=== PATIENT | male | born 1955 | race Caucasian/White ===

== ENCOUNTER 2020-04-17 10:13 | Outpatient (REF) | payer BC, SELFPAY | END 2020-04-17 10:14 | disposition home or self-care (01) | LOC: HO.LNP 10:13 | PROVIDERS: PCP Internal Medicine; Visit Provider Surgery | DX: L72.3 Sebaceous cyst (principal) | CPT/HCPCS: 11401; 88304 ==

== ENCOUNTER → 2020-04-25 08:47 | Outpatient (BNVA) | payer BC, SELFPAY | PROVIDERS: PCP Internal Medicine; Visit Provider Surgery | DX: Z76.89 Persons encountering health services in other specified circumstances (principal) ==

== ENCOUNTER → 2020-07-17 08:25 | Outpatient (BNVA) | payer BC, SELFPAY | PROVIDERS: PCP Internal Medicine; Visit Provider Internal Medicine Cardiovascular Disease ==

== ENCOUNTER 2021-01-01 14:47 | Outpatient (REF) | payer BC, SELFPAY ==
[2021-01-01 15:34] LABS: Glucose Urine UA NEG (NEG); Leukocyte Esterase Urine NEG (NEG); Nitrite Urine NEG (NEG); Urine Blood NEG (NEG); Urine Ketones NEG (NEG); Urine Protein NEG (NEG-TRACE)
[2021-01-01 15:36] LABS: Hematocrit 41.3 % (42-52); Mean Corpuscular HGB Conc 33.9 g/dl (31.0-36.0); Mean Corpuscular Hemoglobin 29.5 pg (27.0-33.0); Mean Corpuscular Volume 87.1 fL (80-98); Mean Platelet Volume 9.9 fL (9.4-12.4); Platelet Count 231 X10*3/uL (160-400); Red Blood Count 4.74 X10*6/uL (4.60-5.80); Red Cell Distribution Width 13.6 % (11.0-16.0); White Blood Count 7.5 X10*3/uL (4.8-10.8)
[2021-01-01 15:37] LABS: Appearance Urine CLEAR; Color Urine YELLOW
[2021-01-01 16:05] LABS: Alanine Aminotransferase 34 U/L (0-40); Albumin Level 4.3 g/dL (3.5-5.0); Alkaline Phosphatase 57 U/L (39-117); Anion Gap 13 (12-20); Aspartate Amino Transferase 31 U/L (5-37); Bilirubin Direct 0.2 mg/dL (0.0-0.5); Bilirubin Total 0.6 mg/dL (0.0-1.0); Blood Urea Nitrogen 13 mg/dL (9-16); Calcium 9.5 mg/dL (8.4-10.2); Carbon Dioxide 25 mmol/L (22-29); Chloride 104 mmol/L (96-108); Cholesterol 163 mg/dL; Estimated Glomerular Filt Rate > 60; Glucose Random 88 mg/dL (60-115); HDL Cholesterol 41 mg/dL; LDL Cholesterol Calculated 112 mg/dl; Potassium 4.3 mmol/L (3.3-5.1); Sodium 138 mmol/L (135-145); Total Protein 7.3 g/dL (6.5-8.0); Triglycerides 52 mg/dL
[2021-01-01 16:09] LABS: Prostate Specific Antigen Scr 1.55 ng/mL (<0.05-4.0); Thyroid Stimulating Hormone 0.55 uIU/mL (0.32-4.0)
== END 2021-01-01 14:48 | disposition home or self-care (01) ==
LOC: HO.LAB 14:47
PROVIDERS: PCP Internal Medicine; Visit Provider Internal Medicine
DX: Z12.5 Encounter for screening for malignant neoplasm of prostate (principal); L02.91 Cutaneous abscess, unspecified
CPT/HCPCS: 36415; 80048; 80061; 80076; 81003; 84153; 84443; 85027

== ENCOUNTER → 2021-01-24 08:24 | Outpatient (BNVA) | payer BC, SELFPAY | PROVIDERS: PCP Internal Medicine; Referring Provider Internal Medicine; Visit Provider Internal Medicine Cardiovascular Disease ==

== ENCOUNTER → 2021-09-05 15:05 | Outpatient (BNVA) | payer MEDICARE, SELFPAY | PROVIDERS: PCP Internal Medicine; Referring Provider Internal Medicine; Visit Provider Internal Medicine Cardiovascular Disease | DX: Z45.018 Encounter for adjustment and management of other part of cardiac pacemaker (principal) | CPT/HCPCS: 99212 ==

== ENCOUNTER → 2022-03-11 08:40 | Outpatient (BNVA) | payer MEDICARE, SELFPAY | PROVIDERS: PCP Internal Medicine; Referring Provider Internal Medicine; Visit Provider Internal Medicine Cardiovascular Disease | DX: Z45.018 Encounter for adjustment and management of other part of cardiac pacemaker (principal); R07.89 Other chest pain; R42 Dizziness and giddiness | CPT/HCPCS: 93005; 93280; 99212 ==

== ENCOUNTER → 2022-09-18 09:17 | Outpatient (BNVA) | payer MEDICARE, SELFPAY | PROVIDERS: PCP Internal Medicine; Referring Provider Internal Medicine; Visit Provider Internal Medicine Cardiovascular Disease | DX: R00.1 Bradycardia, unspecified (principal); R42 Dizziness and giddiness; Z95.0 Presence of cardiac pacemaker | CPT/HCPCS: 93280; 99212 ==

== ENCOUNTER 2023-03-25 13:32 | Outpatient (AMB) | payer MEDICARE, SELFPAY ==
[2023-03-25 13:32] VITALS: BP 138/72; PULSE 63; BMI 27.8
--- NOTE | 2023-03-25 13:32 | MHC.OFFVIS ---
Intake Vital Signs 03/25/23 13:32 Height 5 ft 10 in Weight 194 lb 0.108 oz BMI 27.8 BP 138/72 Blood Pressure Location Lt brachial Position Sitting Pulse 63 Intake Visit Reasons: 6 MON FUP Intake Note: 6 month follow-up feeling good still gets pain under left chest Controls Project Engineer Required: No Allergies No Known Allergies Allergy (Verified 09/18/22 09:33) Medication List - Last Reconciled 03/25/23 by Blake Conley MD omeprazole 20 mg PO DAILY sildenafil (Viagra) 50 mg PO DAILY PRN 30 days tamsulosin (Flomax) 0.4 mg PO DAILY trazodone 100 mg PO BEDTIME PRN 90 days HPI HPI Comments History of Present Illness Details Stephane comes for follow-up. No new cardiac symptoms. Continues to have left him from memory/thoracic cage discomfort not with exertion. Loss for few seconds. No lightheadedness, syncope since increasing fluid intake. Denies any prolonged palpitation irregular heartbeat. [facility] Medical History Cardiac pacemaker in situ Vasovagal syncope Bradycardia Surgical History History of surgery on arm History of pacemaker History of eye surgery Family History Father History of bladder cancer Substance use disorder Mother No problems noted. Social History Housing: House Alcohol intake: never Patient Tobacco Use Status: Former Tobacco user (1988) Quit Date: 1988 e-Cigarette/Vaping Use: Never Used Second Hand Smoke Exposure: No service: Yes Current occupational status: retired Cognitive needs: No Hearing needs: Yes (hearing aide) Vision needs: Yes (reading glasses) Review of Systems Const Denies chills, Denies fatigue, Denies fever(s), Denies frequent falls, Denies weakness, Denies weight gain and Denies weight loss ENT Denies dizziness Card Denies chest pain, Denies leg edema, Denies lightheadedness, Denies palpitations, Denies dyspnea, Denies dyspnea on exertion, Denies orthopnea and Denies other (loss of consciousness) Resp Denies cough, Denies dyspnea and Denies dyspnea on exertion GI Denies hematochezia and Denies change in stool character Musc Denies abnormal gait, Denies muscle weakness, Denies numbness, Denies radiating pain into limb and Denies tingling Neuro Denies abnormal gait, Denies dizziness, Denies frequent falls, Denies numbness, Denies tingling and Denies weakness Endo Denies fatigue and Denies palpitations Physical Exam Vital Signs: Last Vital Signs Pulse 63 03/25/23 13:32 BP 138/72 03/25/23 13:32 BMI result Body Mass Index 27.8 Const General: cooperative, comfortable, no acute distress, alert, awake and well groomed Nutritional Appearance: average body habitus Orientation/consciousness: patient oriented x3 Limitations: no limitations Neck Neck: Yes trachea midline, Yes supple and Yes no JVD Chest Chest palpation & inspection: normal inspection of the chest Resp Effort & Inspection: normal respiratory effort Auscultation: clear to auscultation bilaterally Cardio Jugular venous distension: no JVD Palpation: normal PMI Rate: regular rate Rhythm: regular rhythm Heart sounds: S1 normal heart sound present and S2 normal heart sound present GI Inspection: Yes normal to inspection Skin General skin exam: no rashes or lesions noted Neuro General: patient oriented x3 and no focal motor deficits Extrem General: Yes no clubbing, cyanosis or edema Psych Appearance: grossly normal Office Procedures Cardiac Device Check Cardiac Device Check Details: Dual-chamber Medtronic pacemaker in place programmed in MVP mode with rate drop response turned on. Atrial and ventricular sensing is adequate. Atrial pacing thresholds adequate and reprogrammed to enhance battery life. Ventricular pacing thresholds adequate and reprogrammed to provide adequate safety. Pacing lead impedance is stable. No arrhythmias detected. Battery life is at about 22 months [id number] Cardiac Device Check, pacemaker dual lead Procedure code (CPT) selection complete EKG Details: EKG shows normal sinus rhythm with minimal voltage criteria for LVH otherwise normal EKG. 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 Doing very well from that perspective. It request on following pacemaker through the office every 6 months. Will continue to do the same. Continue adequate fluid intake. No other cardiac workup is indicated at this point time. Will follow up in the clinic in 6 months time, sooner p.r.n.. Thank you for allowing me to partake in his care Coding Level of Care Code Est Pt Level 3 (08532) Diagnoses Cardiac pacemaker in situ Z95.0 CPT Codes Cardiac Device Check - Cardiac Device 2: [id number] Cardiac Device Check, pacemaker dual lead ([id number]) EKG - CPT: 32564-[id number], Complete ([id number])
== END 2023-03-25 13:59 | disposition home or self-care (01) ==
PROVIDERS: Visit Provider Internal Medicine Cardiovascular Disease
DX: R55 Syncope and collapse (principal); Z95.0 Presence of cardiac pacemaker
CPT/HCPCS: 93280; 99213

== ENCOUNTER → 2023-03-25 13:32 | Outpatient (BNVA) | payer MEDICARE, SELFPAY | PROVIDERS: Visit Provider Internal Medicine Cardiovascular Disease | DX: Z45.018 Encounter for adjustment and management of other part of cardiac pacemaker (principal) | CPT/HCPCS: 93005; 93280; 99212 ==

== ENCOUNTER 2023-04-15 07:41 | Outpatient (REF) | payer MEDICARE, SELFPAY ==
[2023-04-15 08:41] LABS: Hematocrit 44.3 % (42.0-52.0); Hemoglobin 14.5 g/dl (14.0-18.0); Mean Corpuscular HGB Conc 32.7 g/dl (31.0-36.0); Mean Corpuscular Hemoglobin 29.2 pg (27.0-33.0); Mean Corpuscular Volume 89.3 fL (80.0-98.0); Mean Platelet Volume 10.1 fL (9.4-12.4); Platelet Count 238 X10*3/uL (160-400); Red Blood Count 4.96 X10*6/uL (4.60-5.80); Red Cell Distribution Width 14.1 % (11.0-16.0); White Blood Count 5.9 X10*3/uL (4.8-10.8)
[2023-04-15 09:43] LABS: Alanine Aminotransferase 37 U/L (0-40); Alkaline Phosphatase 54 U/L (39-117); Anion Gap 10 (12-20); Aspartate Amino Transferase 21 U/L (5-37); Bilirubin Direct 0.1 mg/dL (0.0-0.5); Bilirubin Total 0.3 mg/dL (0.0-1.0); Blood Urea Nitrogen 12 mg/dL (9-16); Calcium 9.2 mg/dL (8.4-10.2); Carbon Dioxide 28 mmol/L (22-29); Chloride 107 mmol/L (96-108); Cholesterol 188 mg/dL (<200); Estimated Glomerular Filt Rate > 60; Glucose Random 113 mg/dL (60-115); HDL Cholesterol 37 mg/dL (>40); LDL Cholesterol Calculated 128 mg/dL (<100); Sodium 141 mmol/L (135-145); Total Protein 7.2 g/dL (6.5-8.0); Triglycerides 119 mg/dL (<150)
[2023-04-15 09:49] LABS: Prostate Specific Antigen Scr 1.65 ng/mL (<0.05-4.0)
== END 2023-04-15 07:42 | disposition home or self-care (01) ==
LOC: HO.LAB 07:41
PROVIDERS: PCP Internal Medicine; Visit Provider Internal Medicine
DX: F41.1 Generalized anxiety disorder (principal); Z20.2 Contact with and (suspected) exposure to infections with a predominantly sexual mode of transmission; Z12.5 Encounter for screening for malignant neoplasm of prostate; E78.00 Pure hypercholesterolemia, unspecified
CPT/HCPCS: 36415; 80048; 80061; 80076; 84153; 84443; 85027

== ENCOUNTER 2023-10-01 08:17 | Outpatient (AMB) | payer MEDICARE, SELFPAY ==
--- NOTE | 2023-10-01 08:24 | A.OFFVIS_ITS ---
Vital Signs 10/01/23 08:25 Height 5 ft 10 in Weight 196 lb 3.382 oz BMI 28.2 BP 136/80 Blood Pressure Location Lt brachial Position Sitting Pulse 55 Intake Visit Reasons: 6 mth f/up Intake Note: 6 month follow-up with [employer] feeling good Boiler Engineer Required: No Allergies No Known Allergies Allergy (Verified 04/03/23 06:23) HPI Comments Details: Stephane comes for follow-up. He has no new cardiac symptoms at current point time. He denies any exertional chest pain or shortness of breath. Has started riding his bike. Denies any palpitations, lightheadedness, syncope. No heart failure symptoms. [facility] Medical History Erectile dysfunction Cardiac pacemaker in situ Vasovagal syncope Bradycardia Surgical History History of surgery on arm History of pacemaker History of eye surgery Family History Father History of bladder cancer Substance use disorder Mother No problems noted. Social History Housing: House Alcohol intake: never Patient Tobacco Use Status: Former Tobacco user (1988) Quit Date: 1988 e-Cigarette/Vaping Use: Never Used Second Hand Smoke Exposure: No service: Yes Current occupational status: retired Cognitive needs: No Hearing needs: Yes (hearing aide) Vision needs: Yes (reading glasses) Review of Systems Const Denies chills, Denies fatigue, Denies fever(s), Denies frequent falls, Denies weakness, Denies weight gain and Denies weight loss ENT Denies dizziness Card Denies chest pain, Denies leg edema, Denies lightheadedness, Denies palpitations, Denies dyspnea, Denies dyspnea on exertion, Denies orthopnea and Denies other (loss of consciousness) Resp Denies cough, Denies dyspnea and Denies dyspnea on exertion GI Denies hematochezia and Denies change in stool character Musc Denies abnormal gait, Denies muscle weakness, Denies numbness, Denies radiating pain into limb and Denies tingling Neuro Denies abnormal gait, Denies dizziness, Denies frequent falls, Denies numbness, Denies tingling and Denies weakness Endo Denies fatigue and Denies palpitations Physical Exam Vital Signs: Last Vital Signs Pulse 55 10/01/23 08:25 BP 136/80 10/01/23 08:25 BMI result Body Mass Index 28.2 Const General: cooperative, comfortable, no acute distress, alert, awake and well groomed Nutritional Appearance: average body habitus Orientation/consciousness: patient oriented x3 Limitations: no limitations Neck Neck: Yes trachea midline, Yes supple and Yes no JVD Chest Chest palpation & inspection: normal inspection of the chest Resp Effort & Inspection: normal respiratory effort Auscultation: clear to auscultation bilaterally Cardio Jugular venous distension: no JVD Palpation: normal PMI Rate: regular rate Rhythm: regular rhythm Heart sounds: S1 normal heart sound present and S2 normal heart sound present GI Inspection: Yes normal to inspection Skin General skin exam: no rashes or lesions noted Neuro General: patient oriented x3 and no focal motor deficits Extrem General: Yes no clubbing, cyanosis or edema Psych Appearance: grossly normal Office Procedures Cardiac Device Check Cardiac Device Check Details: Dual-chamber Medtronic pacemaker in place. Programmed in DDD at 50 beats per minute with rate drop response. More than 250 rate drop response. Atrial ventricular pacing thresholds adequate. Atrial ventricular sensing is adequate. No significant arrhythmias detected. Pacing lead impedance is stable. 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 Advised to set up remote monitoring. Battery life is close to [place]. Will continue monitor every 6 months. Advised to call me with any new symptoms. No other interventions required. Advised to maintain adequate hydration while exercising. Will follow up in the clinic in 6 months time, sooner p.r.n.. Thank you for allowing me to partake in his care Coding Level of Care Code Est Pt Level 3 (71686) Diagnoses Cardiac pacemaker in situ Z95.0 CPT Codes Cardiac Device Check - Cardiac Device 2: [id number] Cardiac Device Check, pacemaker dual lead ([id number])
[2023-10-01 08:25] VITALS: BP 136/80; PULSE 55; BMI 28.2
== END 2023-10-01 08:42 | disposition home or self-care (01) ==
PROVIDERS: PCP Internal Medicine; Visit Provider Internal Medicine Cardiovascular Disease
DX: R55 Syncope and collapse (principal); Z95.0 Presence of cardiac pacemaker
CPT/HCPCS: 93280; 99213

== ENCOUNTER → 2023-10-01 08:17 | Outpatient (BNVA) | payer MEDICARE, SELFPAY | PROVIDERS: PCP Internal Medicine; Visit Provider Internal Medicine Cardiovascular Disease | DX: Z45.018 Encounter for adjustment and management of other part of cardiac pacemaker (principal) | CPT/HCPCS: 93280; 99212 ==

== ENCOUNTER 2024-03-15 12:23 | Outpatient (AMB) | payer MEDICARE, SELFPAY ==
--- NOTE | 2024-03-15 12:30 | A.OFFVIS_ITS ---
Vital Signs 03/15/24 12:40 Height 5 ft 10 in Weight 196 lb 3.382 oz BMI 28.2 BP 120/80 Blood Pressure Location Lt brachial Position Sitting Pulse 76 Intake Visit Reasons: 6 mth f/up pacer ck Intake Note: 6 month follow-up with ekg and MEdtronic check Knockout Machine Operator Required: No Allergies No Known Allergies Allergy (Verified 04/03/23 06:23) Medication List - Last Reconciled 03/15/24 by Blake Conley MD omeprazole 20 mg PO DAILY tadalafil (Cialis) 5 mg PO DAILY tamsulosin (Flomax) 0.4 mg PO DAILY trazodone 100 mg PO BEDTIME PRN 90 days HPI Comments Details: Stephane comes for follow-up. He said he has been struggling slightly to lose weight. He otherwise has no symptoms. Denies any exertional chest pain or shortness of breath. No lightheadedness, syncope. No prolonged palpitation i rregular heartbeat. He was found to have skin cancer behind his right ear and is scheduled to undergo surgery. [facility] Medical History Erectile dysfunction Cardiac pacemaker in situ Vasovagal syncope Bradycardia Surgical History History of surgery on arm History of pacemaker History of eye surgery Family History Father History of bladder cancer Substance use disorder Mother No problems noted. Social History Housing: House Alcohol intake: never Patient Tobacco Use Status: Former Tobacco user e-Cigarette/Vaping Use: Never Used Second Hand Smoke Exposure: No service: Yes Current occupational status: retired Cognitive needs: No Hearing needs: Yes (hearing aide) Vision needs: Yes (reading glasses) Review of Systems Const Denies chills, Denies fatigue, Denies fever(s), Denies frequent falls, Denies weakness, Denies weight gain and Denies weight loss ENT Denies dizziness Card Denies chest pain, Denies leg edema, Denies lightheadedness, Denies palpitations, Denies dyspnea, Denies dyspnea on exertion, Denies orthopnea and Denies other (loss of consciousness) Resp Denies cough, Denies dyspnea and Denies dyspnea on exertion GI Denies hematochezia and Denies change in stool character Musc Denies abnormal gait, Denies muscle weakness, Denies numbness, Denies radiating pain into limb and Denies tingling Neuro Denies abnormal gait, Denies dizziness, Denies frequent falls, Denies numbness, Denies tingling and Denies weakness Endo Denies fatigue and Denies palpitations Physical Exam Vital Signs: Last Vital Signs Pulse 76 03/15/24 12:40 BP 120/80 03/15/24 12:40 BMI result Body Mass Index 28.2 Const General: cooperative, comfortable, no acute distress, alert, awake and well groomed Nutritional Appearance: average body habitus Orientation/consciousness: patient oriented x3 Limitations: no limitations Neck Neck: Yes trachea midline, Yes supple and Yes no JVD Chest Chest palpation & inspection: normal inspection of the chest Resp Effort & Inspection: normal respiratory effort Auscultation: clear to auscultation bilaterally Cardio Jugular venous distension: no JVD Palpation: normal PMI Rate: regular rate Rhythm: regular rhythm Heart sounds: S1 normal heart sound present and S2 normal heart sound present GI Inspection: Yes normal to inspection Skin General skin exam: no rashes or lesions noted Neuro General: patient oriented x3 and no focal motor deficits Extrem General: Yes no clubbing, cyanosis or edema Psych Appearance: grossly normal Office Procedures Cardiac Device Check Cardiac Device Check Details: Dual-chamber Medtronic pacemaker in place with rate drop response. Pacemaker function is adequate. Closer to [place]. 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 No syncopal episodes since then. Pacemaker is working well. Closer to [place]. Will follow up in the clinic in 2 months time for pacer check (2) Preoperative cardiovascular examination: Code(s): Z01.810 - Encounter for preprocedural cardiovascular examination Plan: Preoperative cardiovascular risk stratification prior to skin cancer surgery. Low risk surgery. Overall from cardiac perspective no new symptoms. EKGs benign. He is optimized to undergo surgery with low risk for perioperative cardiovascular morbidity mortality. Will follow up in the clinic in 2 months for pacer check. Thank you for allowing me to partake in his care Coding Level of Care Code Est Pt Level 4 (49230) Complex EM visit Add On G2211 Diagnoses Cardiac pacemaker in situ Z95.0 Preoperative cardiovascular examination Z01.810 CPT Codes Cardiac Device Check - Cardiac Device 2: [id number] Cardiac Device Check, pacemaker dual lead ([id number]) EKG - CPT: 68394-[id number], Complete ([id number])
[2024-03-15 12:40] VITALS: BP 120/80; PULSE 76; BMI 28.2
== END 2024-03-15 13:05 | disposition home or self-care (01) ==
PROVIDERS: PCP Internal Medicine; Visit Provider Internal Medicine Cardiovascular Disease
DX: I42.2 Other hypertrophic cardiomyopathy (principal); Z45.018 Encounter for adjustment and management of other part of cardiac pacemaker; Z01.810 Encounter for preprocedural cardiovascular examination
CPT/HCPCS: 93010; 93280; 99214; G2211

== ENCOUNTER → 2024-03-15 12:23 | Outpatient (BNVA) | payer MEDICARE, SELFPAY | PROVIDERS: PCP Internal Medicine; Visit Provider Internal Medicine Cardiovascular Disease | DX: Z01.810 Encounter for preprocedural cardiovascular examination (principal); Z95.0 Presence of cardiac pacemaker | CPT/HCPCS: 93005; 93280; 99212 ==

== ENCOUNTER 2024-04-14 08:08 | Outpatient (AMB) | payer MEDICARE, SELFPAY ==
--- NOTE | 2024-04-14 08:25 | A.OFFVIS_ITS ---
Intake Vital Signs 04/14/24 08:27 Height 5 ft 10 in Weight 196 lb 8 oz BMI 28.2 BP 110/74 Blood Pressure Location Lt brachial Position Sitting Pulse 54 Pulse Source Pulse Oximeter Pulse Oximetry (%) 94 Oxygen Delivery Method Room Air Intake Visit Reasons: LEANDRA G0439 Intake Note: Patient is here for an Annual Wellness Visit. Ancillary Services Manager Required: No Farm Facility Manager: Farm Facility Manager offered & declined Accompanied by: Self / Same As Patient Allergies No Known Allergies Allergy (Verified 04/14/24 08:27) HPI SWV G0439 HPI Details 68-year-old male presents to the office for a subsequent wellness visit. In addition patient wishes to discuss certain matters pertaining to his chronic medical illness. He has been taking an increased dosage of trazodone to help him sleep. This also helps him with his anxiety symptoms. He has been taking 1-1/2 pills of trazodone 100 mg every day. He wishes the medication list should reflect this dosage. Patient is complaining of discomfort and pain in the right knee. Symptoms have been present for the past few months. Able to walk with no discomfort. [facility] Medical History Osteoarthritis of right knee Borderline hypercholesterolemia Basal cell carcinoma Erectile dysfunction Cardiac pacemaker in situ Vasovagal syncope Bradycardia Surgical History H/O colonoscopy (~05/18/19) History of surgery on arm History of pacemaker History of eye surgery Family History Father History of bladder cancer Substance use disorder Mother No problems noted. Social History Housing: House Alcohol intake: never Patient Tobacco Use Status: Former Tobacco user e-Cigarette/Vaping Use: Never Used Second Hand Smoke Exposure: No service: Yes Current occupational status: retired Cognitive needs: No Hearing needs: Yes (hearing aide) Vision needs: Yes (reading glasses) Questionnaire Medicare Wellness Checkup [age] 65-70 What gender do you identify with?: male During the past 4 weeks, how much have you been bothered by emotional problems such as feeling anxious, depressed, irritable, sad or downhearted, and blue?: not at all During the past 4 weeks, has your physical & emotional health limited your social activities with family, friends, neighbors, or groups?: not at all During the past 4 weeks, how much bodily pain have you generally had?: mild pain During the past 4 weeks, was someone available to help you if you needed & wanted help?: no, not at all During the past 4 weeks, what was the hardest physical activity you could do for at least 2 minutes?: very heavy Can you get to places out of walking distance without help? (For eg., can you travel alone on buses, taxis or drive your car?): Yes Can you go shopping for groceries or clothes without someone's help?: Yes Can you prepare your own meals?: Yes Can you do your housework without help?: Yes Because of any health problems, do you need the help of another person with your personal care needs such as eating, bathing, dressing or getting around the house?: No Can you handle your own money without help?: Yes During the past 4 weeks, how would you rate your health in general?: very good During the past 4 weeks how have things been going for you?: very well; could hardly better Are you having difficulties driving your car?: no Do you always fasten your seat belt when you are in a car?: yes, usually During past 4 weeks, have you been bothered by the following: never: Falling or dizzy when standing up, Sexual problems?, Trouble eating well?, Teeth or denture problems?, Problems using the telephone? and Tiredness or fatigue? Have you fallen 2 or more times in the past year?: No Are you afraid of falling?: No Are you a smoker?: no During the past 4 weeks, how many drinks of wine, beer, or other alcoholic beverages did you have?: no alcohol at all Do you exercise for about 20 minutes 3 or more times a week?: yes, all the time Have you been given information to help with the following?: yes: Hazards in your house that might hurt you? and yes: Keeping track of your medications? How often do you have trouble taking medicines the way you have been told to take them?: I always take medicine as prescribed How confident are you that you can control & manage most of your health problems?: very confident What is your race?: White Mini Mental State Exam (MMSE) Orientation What is the (year) (season) (date) (day) (month)?: year, season, date and day Where are we (state) (county) (town or city) (hospital) (floor)?: state, county and town or city Score Score: 7 Activity of Daily Living Bathing - sponge bath, tub bath or shower: receives no assistance (gets in/out by self, if usual bathing means Dressing - getting clothes from closets & drawers, including inner/outer garments & fasteners.: gets clothes & gets completely dressed without help Toileting - going to the 'toilet room' for urine/bowel elimination & cleaning self/arranging clothes: goes to toilet room, cleans self, arranges clothes without help Transfer: moves in & out of bed and chair without help (may use support object) Continence: controls urination/bowel movements completely by self Feeding: feeds self without help Total Score: 0 Information obtained from: patient Using telephone: independent Traveling: independent Shopping: independent Preparing meals: independent Housework: independent Taking medicine: independent Managing money: independent PHQ-9 Over the last 2 weeks, how often have you been bothered by any of the following problems? 1. Little interest or pleasure in doing things: not at all 2. Feeling down, depressed, or hopeless: not at all 3. Trouble falling or staying asleep, or sleeping too much: several days 4. Feeling tired or having little energy: not at all 5. Poor appetite or overeating: not at all 6. Feeling bad about yourself - or that you are a failure or have let yourself or your family down: not at all 7. Trouble concentrating on things, such as reading the newspaper or watching television: not at all 8. Moving or speaking so slowly that other people could have noticed. Or the opposite - being so fidgety or restless that you have been moving around a lot more than usual: not at all 9. Thoughts that you would be better off or of hurting yourself in some way: not at all Total score: 1 Depression Screening Interpretation: Positive Depression Screening Done: Yes Source: Developed by Drs. Jose Mccann, Hans Dobbs and colleagues, with an educational bridget from [employer]. Thrive Questionnaire Date Thrive assessed: 04/14/24 I am a: Patient What is your living situation today?: I have a steady place to live Within the past 12 months, did the food you bought not last and you didn't have the money to get more?: Never true Within the past 12 months, did you worry whether your food would run out before you got money to buy more?: Never true Do you have trouble paying for medicines?: No Do you have trouble getting transportation to medical appointments?: No Do you have trouble paying your heating and electricity bill?: No Do you have trouble taking care of your child, family member or friend?: No Do you have trouble with day-to-day activities such as bathing, preparing meals, shopping, managing finances, etc.?: No Are you currently unemployed and looking for a job?: No Are you interested in more education?: No Please select the resources that you would like help with: None Currently or been in a relationship where the following occur: No concerns reported THRIVE Score: 0 CHRIS-7 AMB Questionnaire CHRIS-7 Date CHRIS - 7 assessed: 04/14/24 Feeling nervous, anxious, or on edge: 0 = Not at all Not being able to stop or control worryin = Not at all Worrying too much about different things: 0 = Not at all Trouble relaxin = Not at all Being so restless that it is hard to sit still: 0 = Not at all Becoming easily annoyed or irritable: 0 = Not at all Feeling afraid as if something awful might happen: 0 = Not at all Total CHRIS-7 score (0-4 normal; 5-9 mild; 10-14 moderate; 15-21 severe): 0 Source: Developed by Drs. Jose Mccann, Hans Dobbs and colleagues, with an educational bridget from [employer]. AUDIT C Alcohol Use Questionnaire (AUDIT-C) 1. How often do you have a drink containing alcohol?: Never Total Score: 0 Physical Exam Vital Signs: Last Vital Signs Pulse 54 04/14/24 08:27 BP 110/74 04/14/24 08:27 Pulse Ox 94 04/14/24 08:27 Oxygen Delivery Method Room Air 04/14/24 08:27 BMI result Body Mass Index 28.2 Balance: Normal Romberg: Negative Tandem Walk: Able to Walk and Turn: Able to Rise from sit to stand: Able to Hearing Whisper test: Pass Rozel of care and individualized screening provided to the patient. Const General: cooperative and healthy appearing Nutritional Appearance: well nourished Orientation/consciousness: patient oriented x3 Limitations: no limitations HEENT Head: Yes normal to inspection Eyes General: appearance normal, both eyes and all related structures Neck Neck: Yes normal visual inspection Chest Chest palpation & inspection: normal palpation of entire chest wall Resp Effort & Inspection: normal respiratory effort Skin Other: Right ear: Posterior surface: Irregularities over the pinna. Biopsy showed basal cell carcinoma. Neuro General: patient oriented x3 Assessment & Plan Assessment & Plan (1) Cardiac pacemaker in situ: Comment: Dual-chamber Medtronic pacemaker, with rate drop response, January 2012 for malignant cardio inhibitory vasovagal syncope Code(s): Z95.0 - Presence of cardiac pacemaker Plan: Patient is scheduled for a battery replacement. (2) Basal cell carcinoma: Code(s): C44.91 - Basal cell carcinoma of skin, unspecified Plan: Patient is scheduled for Mohs surgery in the upcoming weeks. (3) Annual visit for general adult medical examination without abnormal findings: Code(s): Z00.00 - Encounter for general adult medical examination without abnormal findings Plan: Up-to-date on his flu vaccine. Up-to-date on colonoscopy. (4) Erectile dysfunction: Code(s): N52.9 - Male erectile dysfunction, unspecified Plan: Continue current medications. (5) Generalized anxiety disorder: Code(s): F41.1 - Generalized anxiety disorder Plan: Trazodone has been increased to 150 mg once a day. (6) Borderline hypercholesterolemia: Code(s): E78.00 - Pure hypercholesterolemia, unspecified Plan: Statin has been added to the regimen. (7) Osteoarthritis of right knee: Code(s): M17.11 - Unilateral primary osteoarthritis, right knee Plan: X-ray images have been ordered. Current symptoms are being controlled well with Tylenol. Encouraged patient to continue taking the same. Orders: Orders Complete Blood Count no Diff Today E78.00 - Pure hypercholesterolemia, unspecified Basic Metabolic Panel Today E78.00 - Pure hypercholesterolemia, unspecified UA and rflx microscopic Today E78.00 - Pure hypercholesterolemia, unspecified Lipid Panel Today E78.00 - Pure hypercholesterolemia, unspecified Liver Panel Today E78.00 - Pure hypercholesterolemia, unspecified Thyroid Stimulating Hormone Today E78.00 - Pure hypercholesterolemia, unspecified XR knee RT 3V Today S83.91XA - Sprain of unspecified site of right knee, initial encounter Medications: New trazodone 150 mg PO BEDTIME 90 tabs 1RF atorvastatin 10 mg PO BEDTIME 90 tabs 1RF Discontinued trazodone Discontinued Reason: Doctor's Order 100 mg PO BEDTIME 90 days PRN 90 tabs 1RF sleep Quality Reporting (2019) Depression/Bipolar (159/160/161/177) PHQ-9: Total score: 1 Coding Level of Care Code Medicare Subsequent (G0439) Est Pt Level 4 (03175) Diagnoses Cardiac pacemaker in situ Z95.0 Basal cell carcinoma C44.91 Annual visit for general adult medical examination without abnormal findings Z00.00 Erectile dysfunction N52.9 Generalized anxiety disorder F41.1 Borderline hypercholesterolemia E78.00 Osteoarthritis of right knee M17.11
[2024-04-14 08:27] VITALS: BP 110/74; PULSE 54; O2SAT 94; BMI 28.2
== END 2024-04-14 08:59 | disposition home or self-care (01) ==
PROVIDERS: PCP Internal Medicine; Visit Provider Internal Medicine
DX: Z00.00 Encounter for general adult medical examination without abnormal findings (principal); E78.00 Pure hypercholesterolemia, unspecified; Z95.0 Presence of cardiac pacemaker; C44.91 Basal cell carcinoma of skin, unspecified; N52.9 Male erectile dysfunction, unspecified; F41.1 Generalized anxiety disorder; M17.11 Unilateral primary osteoarthritis, right knee

== ENCOUNTER → 2024-04-14 08:08 | Outpatient (BNVA) | payer MEDICARE, SELFPAY | PROVIDERS: PCP Internal Medicine; Visit Provider Internal Medicine | DX: Z95.0 Presence of cardiac pacemaker (principal); C44.91 Basal cell carcinoma of skin, unspecified; F41.1 Generalized anxiety disorder; E78.00 Pure hypercholesterolemia, unspecified | CPT/HCPCS: 99212 ==

== ENCOUNTER 2024-04-26 06:46 | Outpatient (REF) | payer MEDICARE, SELFPAY ==
--- NOTE | ~2024-04-26 | XR_ITS ---
EXAMINATION: XR KNEE, RIGHT CLINICAL INFORMATION: S83.91XA - Sprain of unspecified site of right knee, initial encounter COMPARISON: None available. TECHNIQUE: Four views of the right knee. FINDINGS: Small joint effusion. Tiny medial marginal and posterior patellar spurs. Mild narrowing of the medial compartment. Prominence of the prepatellar soft tissues. XR/XR knee RT 3V IMPRESSION: Mild degenerative changes. This study was presented today April 26, 2024 for interpretation. Stat results provided at this time as requested by referring provider. Electronically signed by: Tana Black MD 04/26/2024 08:25 AM CARMEN
[2024-04-26 07:40] LABS: Hematocrit 42.6 % (42.0-52.0); Hemoglobin 14.6 g/dl (14.0-18.0); Mean Corpuscular HGB Conc 34.3 g/dl (31.0-36.0); Mean Corpuscular Hemoglobin 29.6 pg (27.0-33.0); Mean Corpuscular Volume 86.4 fL (80.0-98.0); Mean Platelet Volume 10.1 fL (9.4-12.4); Platelet Count 231 X10*3/uL (160-400); Red Blood Count 4.93 X10*6/uL (4.60-5.80); Red Cell Distribution Width 13.6 % (11.0-16.0); White Blood Count 6.1 X10*3/uL (4.8-10.8)
[2024-04-26 07:40] LABS: Appearance Urine Clear; Color Urine Yellow; Glucose Urine UA Negative (Negative); Leukocyte Esterase Urine Negative (Negative); Nitrite Urine Negative (Negative); PH 6.5 (5.0-9.0); Specific Gravity - Urine 1.015 (1.005-1.025); Urine Blood Negative (Negative); Urine Ketones Negative (Negative); Urine Protein Negative (Neg-Trace)
[2024-04-26 08:08] LABS: Alanine Aminotransferase 38 U/L (0-40); Alkaline Phosphatase 64 U/L (39-117); Anion Gap 12 (12-20); Aspartate Amino Transferase 28 U/L (5-37); Bilirubin Direct 0.1 mg/dL (0.0-0.5); Bilirubin Total 0.4 mg/dL (0.0-1.0); Blood Urea Nitrogen 16 mg/dL (9-16); Calcium 9.2 mg/dL (8.4-10.2); Carbon Dioxide 25 mmol/L (22-29); Chloride 104 mmol/L (96-108); Cholesterol 135 mg/dL (<200); Estimated Glomerular Filt Rate > 60; Glucose Random 129 mg/dL (60-115); HDL Cholesterol 36 mg/dL (>40); LDL Cholesterol Calculated 79 mg/dL (<100); Potassium 3.9 mmol/L (3.3-5.1); Sodium 137 mmol/L (135-145); Total Protein 6.9 g/dL (6.5-8.0); Triglycerides 100 mg/dL (<150)
[2024-04-26 08:25] LABS: Thyroid Stimulating Hormone 0.91 uIU/mL (0.32-4.0)
== END 2024-04-26 06:47 | disposition home or self-care (01) ==
LOC: HO.LAB 06:46
PROVIDERS: PCP Internal Medicine; Visit Provider Internal Medicine
DX: E78.00 Pure hypercholesterolemia, unspecified (principal); S83.91XA Sprain of unspecified site of right knee, initial encounter
CPT/HCPCS: 36415; 73562; 80048; 80061; 80076; 81003; 84443; 85027

== ENCOUNTER → 2024-05-09 12:08 | Outpatient (BNVA) | payer MEDICARE, SELFPAY | PROVIDERS: PCP Internal Medicine; Visit Provider Internal Medicine Cardiovascular Disease ==

== ENCOUNTER 2024-07-26 09:26 | Outpatient (AMB) | payer MEDICARE, SELFPAY ==
--- NOTE | 2024-07-26 09:31 | MHC.OFFVIS ---
Vital Signs 07/26/24 09:33 Height 5 ft 10 in Weight 198 lb 6.656 oz BMI 28.5 BP 132/70 Blood Pressure Location Lt brachial Position Sitting Pulse 65 Pulse Source Monitor Intake Visit Reasons: 2 mth w/ medtronic ck Allergies No Known Allergies Allergy (Verified 04/14/24 08:27) Medication List - Last Reconciled 07/26/24 by Blake Conley MD atorvastatin 10 mg PO BEDTIME omeprazole 20 mg PO DAILY tamsulosin (Flomax) 0.4 mg PO DAILY trazodone 150 mg PO BEDTIME HPI Comments Details: Stephane comes for follow-up. He has been occasionally noticing pacing spikes intermittently recently. Comes for pacemaker battery evaluation. Pacemaker battery is at replacement indicator. She denies any lightheadedness, syncope. No chest pain or shortness of breath. [facility] Medical History Osteoarthritis of right knee Borderline hypercholesterolemia Basal cell carcinoma Erectile dysfunction Cardiac pacemaker in situ Vasovagal syncope Bradycardia Surgical History H/O colonoscopy (~05/18/19) History of surgery on arm History of pacemaker History of eye surgery Family History Father History of bladder cancer Substance use disorder Mother No problems noted. Social History Housing: House Alcohol intake: never Patient Tobacco Use Status: Former Tobacco user (1988) e-Cigarette/Vaping Use: Never Used Second Hand Smoke Exposure: No service: Yes Current occupational status: retired Cognitive needs: No Hearing needs: Yes (hearing aide) Vision needs: Yes (reading glasses) Review of Systems Const Denies weakness ENT Denies dizziness Card Denies chest pain, Denies chest pain with activity, Denies syncope, Denies rapid heart rate, Denies pedal edema, Denies edema, Denies leg edema, Denies lightheadedness, Denies palpitations, Denies dyspnea, Denies dyspnea on exertion and Denies orthopnea Resp Denies cough, Denies dyspnea and Denies dyspnea on exertion GI Denies hematochezia and Denies change in stool character Musc Denies abnormal gait, Denies muscle cramps, Denies muscle weakness, Denies numbness, Denies radiating pain into limb and Denies tingling Neuro Denies abnormal gait, Denies dizziness, Denies syncope, Denies numbness, Denies tingling and Denies weakness Endo Denies palpitations Physical Exam Vital Signs: Last Vital Signs Pulse 65 07/26/24 09:33 BP 132/70 07/26/24 09:33 BMI result Body Mass Index 28.5 Const General: cooperative, comfortable, no acute distress, alert, awake and well groomed Nutritional Appearance: average body habitus Orientation/consciousness: patient oriented x3 Limitations: no limitations Neck Neck: Yes trachea midline, Yes supple and Yes no JVD Chest Chest palpation & inspection: normal inspection of the chest Resp Effort & Inspection: normal respiratory effort Auscultation: clear to auscultation bilaterally Cardio Jugular venous distension: no JVD Palpation: normal PMI Rate: regular rate Rhythm: regular rhythm Heart sounds: S1 normal heart sound present and S2 normal heart sound present GI Inspection: Yes normal to inspection Skin General skin exam: no rashes or lesions noted Neuro General: patient oriented x3 and no focal motor deficits Extrem General: Yes no clubbing, cyanosis or edema Psych Appearance: grossly normal Office Procedures Cardiac Device Check Cardiac Device Check Details: Dual-chamber Medtronic pacemaker in place. He is currently programmed as backup VVI asynchronous pacing due to battery replacement indicator. No further checks were made [id number] Cardiac Device Check, pacemaker dual lead Procedure code (CPT) selection complete Assessment & Plan Assessment & Plan (1) Pacer at end of battery life: Code(s): Z45.010 - Encounter for checking and testing of cardiac pacemaker pulse generator [battery] Plan: Pacemaker at replacement indicator. He is having symptoms related to asynchronous pacing. At this point time no further intervention required except for change in pulse generator battery. This will be done in near future with the next week or so. We discussed the procedure associated with it will be scheduled as an outpatient. No change in medication at this point time. Will follow up in the clinic after pulse generator change. Coding Level of Care Code Est Pt Level 3 (07692) Complex EM visit Add On G2211 Diagnoses Pacer at end of battery life Z45.010 CPT Codes Cardiac Device Check - Cardiac Device 2: [id number] Cardiac Device Check, pacemaker dual lead ([id number])
[2024-07-26 09:33] VITALS: BP 132/70; PULSE 65; BMI 28.5
== END 2024-07-26 09:55 | disposition home or self-care (01) ==
PROVIDERS: PCP Internal Medicine; Visit Provider Internal Medicine Cardiovascular Disease
DX: Z45.010 Encounter for checking and testing of cardiac pacemaker pulse generator [battery] (principal)
CPT/HCPCS: 93280; 99213; G2211

== ENCOUNTER → 2024-07-26 09:26 | Outpatient (BNVA) | payer MEDICARE, SELFPAY | PROVIDERS: PCP Internal Medicine; Visit Provider Internal Medicine Cardiovascular Disease | DX: Z45.010 Encounter for checking and testing of cardiac pacemaker pulse generator [battery] (principal) | CPT/HCPCS: 93280; 99212 ==

== ENCOUNTER 2024-07-28 08:27 | Outpatient (AMB) | payer MEDICARE, SELFPAY ==
--- NOTE | 2024-07-28 08:48 | MHC.PC.OV ---
Vital Signs 07/28/24 08:50 Height 5 ft 10 in Weight 199 lb 6 oz BMI 28.6 BP 120/72 Blood Pressure Location Lt brachial Position Sitting Pulse 70 Pulse Source Pulse Oximeter Temp 96.9 F Temp Source Temporal Artery Scan Pulse Oximetry (%) 97 Oxygen Delivery Method Room Air Intake Visit Reasons: 3mth f/u Intake Note: Patient is here to follow up on Hypercholesterolemia. Complaint of headaches Social Media Marketer Required: No Notch Machine Operator: Not Required per policy Accompanied by: Self / Same As Patient Allergies No Known Allergies Allergy (Verified 07/28/24 09:24) Medication List - Last Reconciled 07/28/24 by Massimo Hernández MD atorvastatin 10 mg PO BEDTIME omeprazole 20 mg PO DAILY tamsulosin (Flomax) 0.4 mg PO DAILY trazodone 150 mg PO BEDTIME Tobacco use date assessed: 07/28/24 Fall risk assessment: No Falls in past year Last assessed Fall Risk: 07/28/24 Dental Screening Dental Screen Date: 07/28/24 Did you have a dental visit in the last 12 months?: Yes Did you have a dental problem in the last 6 months where you did not have access to dental care?: No Was dental information given to patient?: Patient has dentist [facility] Medical History Osteoarthritis of right knee Borderline hypercholesterolemia Basal cell carcinoma Erectile dysfunction Cardiac pacemaker in situ Vasovagal syncope Bradycardia Surgical History H/O colonoscopy (~05/18/19) History of surgery on arm History of pacemaker History of eye surgery Family History Father History of bladder cancer Substance use disorder Mother No problems noted. Social History Housing: House Alcohol intake: never Patient Tobacco Use Status: Former Tobacco user (1988) e-Cigarette/Vaping Use: Never Used Second Hand Smoke Exposure: Yes service: Yes Current occupational status: retired Cognitive needs: No Hearing needs: Yes (hearing aide) Vision needs: Yes (reading glasses) Questionnaire PHQ-9 Over the last 2 weeks, how often have you been bothered by any of the following problems? 1. Little interest or pleasure in doing things: not at all 2. Feeling down, depressed, or hopeless: not at all 3. Trouble falling or staying asleep, or sleeping too much: not at all 4. Feeling tired or having little energy: not at all 5. Poor appetite or overeating: not at all 6. Feeling bad about yourself - or that you are a failure or have let yourself or your family down: not at all 7. Trouble concentrating on things, such as reading the newspaper or watching television: not at all 8. Moving or speaking so slowly that other people could have noticed. Or the opposite - being so fidgety or restless that you have been moving around a lot more than usual: not at all 9. Thoughts that you would be better off or of hurting yourself in some way: not at all Total score: 0 Depression Screening Interpretation: Negative Depression Screening Done: Yes Source: Developed by Drs. Jose Mccann, Lesa Morel, Hans Olivas and colleagues, with an educational bridget from [employer]. Thrive Questionnaire Date Thrive assessed: 07/28/24 I am a: Patient What is your living situation today?: I have a steady place to live Within the past 12 months, did the food you bought not last and you didn't have the money to get more?: Never true Within the past 12 months, did you worry whether your food would run out before you got money to buy more?: Never true Do you have trouble paying for medicines?: No Do you have trouble getting transportation to medical appointments?: No Do you have trouble paying your heating and electricity bill?: No Do you have trouble taking care of your child, family member or friend?: No Do you have trouble with day-to-day activities such as bathing, preparing meals, shopping, managing finances, etc.?: No Are you currently unemployed and looking for a job?: No Are you interested in more education?: No Please select the resources that you would like help with: None Currently or been in a relationship where the following occur: No concerns reported THRIVE Score: 0 AUDIT C Alcohol Use Questionnaire (AUDIT-C) 1. How often do you have a drink containing alcohol?: Never Total Score: 0 CHRIS-7 AMB Questionnaire CHRIS-7 Date CHRIS - 7 assessed: 07/28/24 Feeling nervous, anxious, or on edge: 0 = Not at all Not being able to stop or control worryin = Not at all Worrying too much about different things: 0 = Not at all Trouble relaxin = Not at all Being so restless that it is hard to sit still: 0 = Not at all Becoming easily annoyed or irritable: 0 = Not at all Feeling afraid as if something awful might happen: 0 = Not at all Total CHRIS-7 score (0-4 normal; 5-9 mild; 10-14 moderate; 15-21 severe): 0 Source: Developed by Drs. Jose Mccann, Lesa Morel, Hans Olivas and colleagues, with an educational bridget from [employer]. Physical exam (Primary Care) Vital Signs: Last Vital Signs Temp 96.9 F 07/28/24 08:50 Pulse 70 07/28/24 08:50 BP 120/72 07/28/24 08:50 Pulse Ox 97 07/28/24 08:50 Oxygen Delivery Method Room Air 07/28/24 08:50 BMI result Body Mass Index 28.6 Tobacco/Smoking Status: Tobacco use Status Tobacco use date assessed 07/28/24 07/28/24 08:54 Patient Tobacco Use Status Former Tobacco user (1988) 07/28/24 08:48 e-Cigarette/Vaping Use Never Used 07/28/24 08:48 PHQ-9: PHQ-9 Score PHQ-9: Total score 0 07/28/24 08:54 Depression Screening Interpretation: Negative Thrive Assessment: Date of Thrive Assessment Date Thrive assessed 07/28/24 07/28/24 08:54 Currently or been in a relationship where the following occur: No concerns reported Coding Level of Care Code Est Pt Level 4 (86829) Complex EM visit Add On G2211 Diagnoses Basal cell carcinoma C44.91 Borderline hypercholesterolemia E78.00 Cardiac pacemaker in situ Z95.0 Generalized anxiety disorder F41.1 Hematochezia K92.1 Headache R51.9 Assessment & Plan Assessment & Plan (1) Basal cell carcinoma: Code(s): C44.91 - Basal cell carcinoma of skin, unspecified Category: Medical Plan: Condition has resolved. (2) Borderline hypercholesterolemia: Code(s): E78.00 - Pure hypercholesterolemia, unspecified Category: Medical Plan: BW shows LDL in range. Continue medications at same dosage. (3) Cardiac pacemaker in situ: Comment: Dual-chamber Medtronic pacemaker, with rate drop response, January 2012 for malignant cardio inhibitory vasovagal syncope Code(s): Z95.0 - Presence of cardiac pacemaker Category: Medical Plan: Scheduled for battery replacement next week. (4) Generalized anxiety disorder: Code(s): F41.1 - Generalized anxiety disorder Category: Medical Plan: Condition is stable (5) Hematochezia: Code(s): K92.1 - Melena Plan: One episode. Patient had a colonoscopy few years ago. If sx recur, will refer to GI (6) Headache: Code(s): R51.9 - Headache, unspecified Plan: Most likely vascular in nature. If sx persist to follow up here. Plan History of Present Illness The patient is a 69-year-old male presenting with headaches and photophobia. The headaches are recent and worsening, occurring almost daily, primarily at the back of the head and around the eyes. He finds relief with Tylenol. Photophobia is a chronic issue, with increased sensitivity to light hindering night driving due to bright lights. He has a history of cataract surgery and is experiencing floaters, prompting a recommended ophthalmic reevaluation. The patient also reported an isolated incident of bright red rectal bleeding, likely related to hemorrhoids or a previous fissure. Additionally, he is seeking advice on weight management, facing challenges with reducing carbohydrates and sugars. Social History - Functional Status: Engages in daily activities, including driving, though finding night driving difficult. - Vision: Post-cataract surgery with current involvement of floaters. - Weight: Expresses difficulty with weight loss, currently around 200 lbs, struggling to cut carbohydrates and sugars despite awareness. - Nutritional Intake: Regular consumption of wheat bread, occasionally consumes high-sugar beverages like regular Coca-Cola. Review of Systems - Neurological: Reports headaches at the back of the head and around the eyes, increasing in frequency. - Ophthalmologic: Reports photophobia that's long-standing, floaters, and difficulty with bright lights while driving. - Gastrointestinal: Reports an isolated incident of bright red bleeding per rectum. - General: Denies nausea or vomiting. Physical Exam General: Appearance normal, both eyes and all related structures Nutritional Appearance: Well nourished, but patient is concerned about weight and is having trouble losing weight Orientation/consciousness: Patient oriented x3 Limitations: No limitations, but patient reports light sensitivity and difficulty with night driving Head: Normal to inspection, but patient reports frequent headaches, particularly at the back of the head and near the eyes Neck: Normal visual inspection Chest: Normal palpation of entire chest wall Respiratory: Normal respiratory effort Neurology: Patient oriented x3, but reports frequent headaches and light sensitivity Results - Labs: Blood work completed in April, results were normal. Plan The patient's recent headaches with photophobia require further ophthalmic evaluation due to potential visual disturbances contributing to symptoms. An eye exam is recommended due to recurrent floaters. An isolated incident of rectal bleeding is monitored, while symptomatic relief through hemorrhoid management is initiated. Dietary advice for weight management is provided, prioritizing reduced carbohydrate and sugar intake. The patient's scheduled pacemaker battery replacement underscores the need for cardiovascular follow-up. Continued remission is noted after basal cell carcinoma excision. Patient was informed and verbally consented to the use of an ambient scribe for clinic note documentation during this visit. Discussion Notes During this consultation, I emphasized the significance of addressing the visual component of the headaches by rescheduling an eye exam, acknowledging the role of photophobia in exacerbating his symptoms. Discussion regarding solitary rectal bleeding events suggests a conservative approach unless recurrence or pain emerges, whereupon further investigative action will be taken. Weight management advice recommends dietary modulation to counteract rise in weight metrics while confirming normal status post-cataract intervention. The patient was counselled on maintaining vigilance on symptoms potentially heralding reemergence of bleeding episodes. The patient remains informed of expectations surrounding the pacemaker battery replacement procedure scheduled subsequently, with an elucidation on related health maintenance measures. Patient Instructions - Schedule an eye exam to evaluate for floaters and address headaches. - Monitor for further rectal bleeding; report if symptoms recur. - Reduce carbohydrate and sugar intake to aid in weight management. - Continue prescribed treatment for headaches and seek further evaluation if no improvement. - Prepare for upcoming pacemaker battery replacement as scheduled. - Stay alert for changes or new symptoms and seek medical advice promptly.
[2024-07-28 08:50] VITALS: BP 120/72; PULSE 70; TEMP 36.1; O2SAT 97; BMI 28.6
== END 2024-07-28 09:16 | disposition home or self-care (01) ==
PROVIDERS: PCP Internal Medicine; Visit Provider Internal Medicine
DX: C44.91 Basal cell carcinoma of skin, unspecified (principal); E78.00 Pure hypercholesterolemia, unspecified; Z95.0 Presence of cardiac pacemaker; F41.1 Generalized anxiety disorder; K92.1 Melena; R51.9 Headache, unspecified

== ENCOUNTER → 2024-07-28 08:27 | Outpatient (BNVA) | payer MEDICARE, SELFPAY | PROVIDERS: PCP Internal Medicine; Visit Provider Internal Medicine | DX: C44.91 Basal cell carcinoma of skin, unspecified (principal); E78.00 Pure hypercholesterolemia, unspecified; F41.1 Generalized anxiety disorder; Z95.0 Presence of cardiac pacemaker | CPT/HCPCS: 99212 ==

== ENCOUNTER 2024-08-16 07:22 | Outpatient (REF) | payer MEDICARE, SELFPAY ==
[2024-08-16 07:44] LABS: MANUAL DIFF FLAG NO
[2024-08-16 08:07] LABS: Basophils Percent Auto 0.4 % (0-2); Eosinophils Absolute Auto 0.5 X10*3/uL (0.0-0.4); Eosinophils Percent Auto 6.8 % (0-4); Hematocrit 43.3 % (42.0-52.0); Hemoglobin 14.7 g/dl (14.0-18.0); Imm Gran Abs Auto 0.01 X10*3/uL (0.00-0.03); Imm Gran Pct Auto 0.1 % (0.0-0.4); Lymphocytes Absolute Auto 2.4 X10*3/uL (1.2-4.9); Lymphocytes Percent Auto 34.4 % (20-40); Mean Corpuscular HGB Conc 33.9 g/dl (31.0-36.0); Mean Corpuscular Hemoglobin 29.2 pg (27.0-33.0); Mean Corpuscular Volume 85.9 fL (80.0-98.0); Mean Platelet Volume 10.1 fL (9.4-12.4); Monocytes Absolute Auto 0.6 X10*3/uL (0.1-1.2); Monocytes Percent Auto 8.4 % (2-11); Neutrophils Absolute Auto 3.4 x10*3/uL (2.0-8.3); Neutrophils Percent Auto 49.9 % (45-73); Platelet Count 240 X10*3/uL (160-400); Red Blood Count 5.04 X10*6/uL (4.60-5.80); Red Cell Distribution Width 13.6 % (11.0-16.0); White Blood Count 6.9 X10*3/uL (4.8-10.8)
[2024-08-16 08:38] LABS: Anion Gap 11 (12-20); Blood Urea Nitrogen 13 mg/dL (9-16); Calcium 9.1 mg/dL (8.4-10.2); Carbon Dioxide 26 mmol/L (22-29); Chloride 107 mmol/L (96-108); Estimated Glomerular Filt Rate > 60; Glucose Random 114 mg/dL (60-115); Potassium 3.8 mmol/L (3.3-5.1); Sodium 140 mmol/L (135-145)
[2024-08-16 09:34] LABS: Prothrombin Time 11.6 SEC (10.9-12.4)
== END 2024-08-16 07:23 | disposition home or self-care (01) ==
LOC: HO.LAB 07:22
PROVIDERS: PCP Internal Medicine; Visit Provider Student in an Organized Health Care Education/Training Program
DX: Z01.818 Encounter for other preprocedural examination (principal); Z45.018 Encounter for adjustment and management of other part of cardiac pacemaker
CPT/HCPCS: 36415; 80048; 85025; 85610

== ENCOUNTER 2024-08-18 12:12 | Day surgery (SDC) | payer MEDICARE, SELFPAY ==
[2024-08-18] VITALS (17 sets, daily range): BP systolic 127–169; BP diastolic 78–104; PULSE 56–75; RESP 13–19; TEMP 36.6; O2SAT 93–98; BMI 28.0
--- NOTE | 2024-08-18 14:00 | PC.NURSE ---
Patient in preop. Question of rhythm on monitor. SR for a few beats to changed beat with wide QRS complex, no tachycardia noted, patient asymptomatic. EKG obtained verifying V paced rhythm. Dr. Esqueda made aware. No new orders at this time.
--- NOTE | 2024-08-18 14:01 | ECG_ITS ---
Test Reason : pacemaker battery Blood Pressure : */* mmHG Vent. Rate : 65 BPM Atrial Rate : 62 BPM P-R Int : * ms QRS Dur : 102 ms QT Int : 418 ms P-R-T Axes : 21 -12 43 degrees QTcB Int : 434 ms Ventricular-paced rhythm Abnormal ECG When compared with ECG of 08-May-2014 16:45, Electronic ventricular pacemaker has replaced Sinus rhythm Referred By: Armando Esqueda Electronically Signed By: Naun Dobbins
[2024-08-18] MEDS: ceFAZolin Sodium/Dextrose,Iso 2 GM/50 ML PIGGYBACK IV (16:30)
[2024-08-18] MEDS: Midazolam HCl 2 MG/2 ML VIAL 1 MG IVPUSH (16:45)
[2024-08-18] MEDS: fentaNYL citrate/PF 100 MCG/2 ML VIAL 25 MCG IVPUSH (16:45)
--- NOTE | 2024-08-18 17:41 | W.PM.OPN ---
Operative Note Operative Note Date of Service: 08/18/24 Narrative: Patient presented to the EP lab in a fasting, nonsedated state after written informed consent was obtained. A timeout was called prior to beginning of the case. 2g IV Ancef was administered prior to skin incision. Patient was prepped and draped in the usual sterile manner. A 1 inch incision was made superior to the existing generator. Electrocautery and blunt dissection was used to expose the generator capsule. The existng generator was removed from the pocket. A new Medtronic pacemaker generator was brought into the field. The leads were detached from the existing generator and inserted into the respective ports of the new pacemaker generator. Pacing parameters were checked to be optimal. The pocket was flushed with an antibiotic irrigant. Any bleeders were controlled with electrocautery. A TYRX antibiotic envelope was placed inside the pocket. The pacemaker leads were wrapped underneath the generator and the generator was placed within the pocket. The pocket was closed in 3 layers: 2-0 Vicryl running followed by 4-0 V-Loc. Exofin was applied over the incision site. A guaze and Tegaderm dressing were applied over the site. Patient was then transported to recovery in a stable condition. Summary: 1. Generator replacement of dual chamber Medtronic pacemaker (CPT 42461) Recommendations: 1. Keep incision site dry for 7 days. 2. Follow up in EP clinic within 7-14 days for incision site check.
== END 2024-08-18 18:53 | disposition home or self-care (01) ==
PROVIDERS: PCP Internal Medicine; Visit Provider Student in an Organized Health Care Education/Training Program
PROC: (CPT 33228; principal; 2024-08-18 14:00)
DX: Z45.018 Encounter for adjustment and management of other part of cardiac pacemaker (principal); E78.00 Pure hypercholesterolemia, unspecified; R00.1 Bradycardia, unspecified; Z85.828 Personal history of other malignant neoplasm of skin; Z87.891 Personal history of nicotine dependence; Z79.899 Other long term (current) drug therapy; Z98.890 Other specified postprocedural states
CPT/HCPCS: 33228; 93005; C1785; C1889; J0690; J2250; J2310; J3010

== ENCOUNTER → 2024-08-18 14:01 | Outpatient (BNV) | payer MEDICARE, SELFPAY | PROVIDERS: PCP Internal Medicine; Visit Provider Internal Medicine Cardiovascular Disease | DX: R94.31 Abnormal electrocardiogram [ECG] [EKG] (principal); Z95.0 Presence of cardiac pacemaker | CPT/HCPCS: 93010 ==

== ENCOUNTER → 2024-09-05 09:58 | Outpatient (BNVA) | payer MEDICARE, SELFPAY | PROVIDERS: PCP Internal Medicine; Visit Provider Nurse Practitioner Family ==

== ENCOUNTER → 2024-09-19 23:59 | Outpatient (BNV) | payer MEDICARE, SELFPAY ==
--- NOTE | 2024-09-21 13:34 | MHC.OFFVIS ---
Intake Visit Reasons: Remote device ck-Medtronic Allergies No Known Allergies Allergy (Verified 08/18/24 13:25) PFSH Medical History (Updated 08/29/24 @ 17:15 by Nargis Templeton PA-C) Cough Osteoarthritis of right knee Borderline hypercholesterolemia Basal cell carcinoma Erectile dysfunction Cardiac pacemaker in situ Vasovagal syncope Bradycardia Surgical History (Updated 09/15/24 @ 10:20 by Lorena Garcia) History of ear surgery H/O colonoscopy (~05/18/19) History of surgery on arm History of pacemaker History of eye surgery Family History Father History of bladder cancer Substance use disorder Mother No problems noted. Social History Housing: House Alcohol intake: never Patient Tobacco Use Status: Former Tobacco user e-Cigarette/Vaping Use: Never Used Second Hand Smoke Exposure: Yes service: Yes Current occupational status: retired Cognitive needs: No Hearing needs: Yes (hearing aide) Vision needs: Yes (reading glasses) Office Procedures Cardiac Device Check Cardiac Device Check Details: Remote pacemaker report generated 09/19/2024. Pacemaker function is adequate [id number] Cardiac Device Interrogation, pacemaker Procedure code (CPT) selection complete Assessment & Plan Assessment & Plan (1) Cardiac pacemaker in situ: Comment: Dual-chamber Medtronic pacemaker, with rate drop response, January 2012 for malignant cardio inhibitory vasovagal syncope Code(s): Z95.0 - Presence of cardiac pacemaker Category: Medical Plan: See above Coding Level of Care Code Procedure Only Diagnoses Cardiac pacemaker in situ Z95.0 CPT Codes Cardiac Device Check - Cardiac Device 12: [id number] Cardiac Device Interrogation, pacemaker ([id number])
== END ==
PROVIDERS: PCP Internal Medicine; Visit Provider Internal Medicine Cardiovascular Disease
DX: R55 Syncope and collapse (principal); Z95.0 Presence of cardiac pacemaker
CPT/HCPCS: 93294

== ENCOUNTER 2024-09-23 11:14 | Outpatient (AMB) | payer MEDICARE, SELFPAY ==
[2024-09-23 11:19] VITALS: BP 130/80; PULSE 63; O2SAT 94; BMI 28.3
--- NOTE | 2024-09-23 11:19 | MHC.PC.OV ---
Vital Signs 09/23/24 11:19 Height 5 ft 10 in Weight 197 lb 4 oz BMI 28.3 BP 130/80 Blood Pressure Location Lt brachial Position Sitting Pulse 63 Pulse Source Pulse Oximeter Pulse Oximetry (%) 94 Oxygen Delivery Method Room Air Intake Visit Reasons: right ear pain Crabber Required: No Accompanied by: Self / Same As Patient Allergies No Known Allergies Allergy (Verified 09/23/24 11:45) Medication List - Last Reconciled 09/23/24 by Fred Hu MD atorvastatin 10 mg PO BEDTIME omeprazole 20 mg PO DAILY tamsulosin (Flomax) 0.4 mg PO DAILY trazodone 150 mg PO BEDTIME Tobacco use date assessed: 09/23/24 Fall risk assessment: No Falls in past year Last assessed Fall Risk: 09/23/24 Dental Screening Dental Screen Date: 09/23/24 Did you have a dental visit in the last 12 months?: No Did you have a dental problem in the last 6 months where you did not have access to dental care?: No Was dental information given to patient?: No HPI right ear pain HPI Details Patient comes in today complaining of increased pain on both sides - states that he is not sure if the pain is in his ears or in his neck He is pointing more over his posterior cervical areas and posterior auricular areas bilaterally as the areas where he feels his symptoms are and states that they have been bothering him for over a week now States that he just got over a bout of COVID (his first) - he tested positive for COVID about a month ago and relates that he was very sick for a while, with increased cough and congestion especially He was reportedly treated with a Zpak a couple of weeks ago, which he felt did not really help much States that his symptoms overall are much better now but he still feels some chest congestion and he is still coughing every now and then and he still coughs up thick whitish to slightly yellowish phlegm at times lately He denies any fever or sore throat; denies any headaches or dizziness Denies any chest pains States that his chest still feels congested but he denies any increased SOB No nausea/vomiting, no abdominal pain No change in bowel habits noted [facility] Medical History (Updated 09/23/24 @ 12:35 by Fred Hu MD) Osteoarthritis of right knee Borderline hypercholesterolemia Basal cell carcinoma Erectile dysfunction Cardiac pacemaker in situ Vasovagal syncope Bradycardia Surgical History History of ear surgery H/O colonoscopy (~05/18/19) History of surgery on arm History of pacemaker History of eye surgery Family History Father History of bladder cancer Substance use disorder Mother No problems noted. Social History Housing: House Alcohol intake: never Patient Tobacco Use Status: Former Tobacco user e-Cigarette/Vaping Use: Never Used Second Hand Smoke Exposure: Yes service: Yes Current occupational status: retired Cognitive needs: No Hearing needs: Yes (hearing aide) Vision needs: Yes (reading glasses) Questionnaire PHQ-9 Over the last 2 weeks, how often have you been bothered by any of the following problems? 1. Little interest or pleasure in doing things: not at all 2. Feeling down, depressed, or hopeless: not at all 3. Trouble falling or staying asleep, or sleeping too much: several days 4. Feeling tired or having little energy: not at all 5. Poor appetite or overeating: not at all 6. Feeling bad about yourself - or that you are a failure or have let yourself or your family down: not at all 7. Trouble concentrating on things, such as reading the newspaper or watching television: not at all 8. Moving or speaking so slowly that other people could have noticed. Or the opposite - being so fidgety or restless that you have been moving around a lot more than usual: not at all 9. Thoughts that you would be better off or of hurting yourself in some way: not at all Total score: 1 Depression Screening Interpretation: Negative Depression Screening Done: Yes 34617 - PHQ-9 Billing: Yes Source: Developed by Drs. Jose Mccann, Lesa Morel, Hans Olivas and colleagues, with an educational bridget from [facility] [employer]. Thrive Questionnaire Date Thrive assessed: 09/23/24 I am a: Patient What is your living situation today?: I have a steady place to live Within the past 12 months, did the food you bought not last and you didn't have the money to get more?: Never true Within the past 12 months, did you worry whether your food would run out before you got money to buy more?: Never true Do you have trouble paying for medicines?: No Do you have trouble getting transportation to medical appointments?: No Do you have trouble paying your heating and electricity bill?: No Do you have trouble taking care of your child, family member or friend?: No Do you have trouble with day-to-day activities such as bathing, preparing meals, shopping, managing finances, etc.?: No Are you currently unemployed and looking for a job?: No Are you interested in more education?: No Please select the resources that you would like help with: None Currently or been in a relationship where the following occur: No concerns reported THRIVE Score: 0 AUDIT C Alcohol Use Questionnaire (AUDIT-C) 1. How often do you have a drink containing alcohol?: Never 3. How often do you have six or more drinks on one occasion?: Never Total Score: 0 Score Reviewed/Action Taken: Yes CHRIS-7 AMB Questionnaire CHRIS-7 Date CHRIS - 7 assessed: 09/23/24 Feeling nervous, anxious, or on edge: 0 = Not at all Not being able to stop or control worryin = Not at all Worrying too much about different things: 0 = Not at all Trouble relaxin = Not at all Being so restless that it is hard to sit still: 0 = Not at all Becoming easily annoyed or irritable: 0 = Not at all Feeling afraid as if something awful might happen: 0 = Not at all Total CHRIS-7 score (0-4 normal; 5-9 mild; 10-14 moderate; 15-21 severe): 0 Source: Developed by Drs. Jose Mccann, Lesa Morel, Hans Olivas and colleagues, with an educational bridget from [facility]. Review of Systems Const Denies chills, Denies fatigue, Denies fever(s) and Denies headache(s) ENT Denies dysphagia, Denies dizziness, Denies ear discharge, Reports otalgia, Denies headache(s), Reports neck pain (bilaterally/on both sides), Denies odynophagia and Denies sore throat Card Denies chest pain, Denies palpitations and Denies dyspnea Resp Reports chest congestion, Reports cough (on and off - see HPI), Denies pain with cough, Denies dyspnea and Denies wheezing GI Denies abdominal pain, Denies constipation, Denies dysphagia, Denies heartburn, Denies diarrhea, Denies nausea, Denies odynophagia and Denies vomiting Denies difficulty urinating, Denies dysuria, Denies nocturia and Denies urinary frequency Musc Denies back pain and Reports neck pain (bilaterally/on both sides) Skin/Breast Denies rash Neuro Denies dizziness and Denies headache(s) Endo Denies fatigue and Denies palpitations Aller/Immun Denies wheezing Physical exam (Primary Care) Vital Signs: Last Vital Signs Pulse 63 09/23/24 11:19 BP 130/80 09/23/24 11:19 Pulse Ox 94 09/23/24 11:19 Oxygen Delivery Method Room Air 09/23/24 11:19 BMI result Body Mass Index 28.3 Tobacco/Smoking Status: Tobacco use Status Tobacco use date assessed 09/23/24 09/23/24 11:25 Patient Tobacco Use Status Former Tobacco user 09/23/24 11:25 e-Cigarette/Vaping Use Never Used 09/23/24 11:25 PHQ-9: PHQ-9 Score PHQ-9: Total score 1 09/23/24 11:25 Depression Screening Interpretation: Negative Thrive Assessment: Date of Thrive Assessment Date Thrive assessed 09/23/24 09/23/24 11:25 Currently or been in a relationship where the following occur: No concerns reported Const General: no acute distress and alert HENMT Ears: TM's normal bilaterally and EAC's normal Throat: Yes posterior oropharynx normal and Yes tonsils normal (no TP congestion) Neck Other: (+) palpable multiple bilateral posterior cervical lymph nodes - slightly tender on palpation Neck: Yes supple Thyroid: Thyroid normal Resp Auscultation: no rales, rhonchi (scattered) throughout, no wheezes and diminished lung sounds (slightly) bilateral Cardio Rate: regular rate Rhythm: regular rhythm Heart sounds: no murmurs GI Palpation (GI): Soft to palpation and nontender Auscultation: normal bowel sounds General: Yes no CVA tenderness Back/Spine/Pelvis Back: no CVA tenderness Thoracic/Lumbar Spine: No lumbar spinal tenderness Skin Rashes: no rashes Extrem General: Yes no clubbing, cyanosis or edema Coding Level of Care Code Est Pt Level 3 (48219) Diagnoses Cervical lymphadenopathy R59.0 Respiratory tract infection J98.8 Additional Codes PHQ-9 - 44187 - PHQ-9 Billing: Yes ([id number]) Assessment & Plan Assessment & Plan (1) Cervical lymphadenopathy: Code(s): R59.0 - Localized enlarged lymph nodes Category: Medical Plan: Explained to patient that the areas that he is pointing to on the sides of his neck as to where he is feeling pain are mostly due to his cervical lymph nodes and are not due to ear pain as he was initially wondering about Have explained to him that currently, his posterior cervical lymph nodes on both sides of his neck are inflamed and that is why they are tender on palpation, and that this may just be related to his recent bout with COVID He is reassured that his ears look normal on exam today and he does not have any ongoing ear infection at present Will send him to the lab to check his CBC DWIGHT for further evaluation, in case there is any other acute issues going on He will be started today empirically on Augmentin x 7 days and this will hopefully also address these symptoms (2) Respiratory tract infection: Code(s): J98.8 - Other specified respiratory disorders Category: Medical Plan: His chest/lungs sound congested on auscultation today, consistent with his stated complaints of increased chest congestion and on and off productive cough This is likely a residual of his recent bout with COVID - with his Hx of smoking, may also be a COPD exacerbation to some extent States that he was treated with a Zpak a few weeks ago and he felt that the Abx did not really help much Will go ahead and start him empirically this time on Augmentin 875 mg BID x 7 days Have advised patient to call if he still does not experience any significant improvement of his chest symptoms in a week or so when he is done with his Abx Rx and he may need to be worked up further for his respiratory/pulmonary complaints Plan Follow up with PCP as scheduled in January 2025 Orders: Orders Erythrocyte Sedimentation Rate Today R59.0 - Localized enlarged lymph nodes Complete Blood Count Auto Diff Today R59.0 - Localized enlarged lymph nodes Medications: New amoxicillin-pot clavulanate 875-125 mg 1 tab PO BID 7 days 14 tabs 0RF
== END 2024-09-23 11:49 | disposition home or self-care (01) ==
LOC: HO.HMCH 11:15
PROVIDERS: PCP Internal Medicine; Visit Provider Internal Medicine
DX: R59.0 Localized enlarged lymph nodes (principal); J98.8 Other specified respiratory disorders

== ENCOUNTER 2024-09-23 11:14 | Outpatient (REF) | payer MEDICARE, SELFPAY ==
[2024-09-23 12:09] LABS: MANUAL DIFF FLAG NO
[2024-09-23 12:22] LABS: Basophils Percent Auto 0.5 % (0-2); Eosinophils Absolute Auto 0.4 X10*3/uL (0.0-0.4); Eosinophils Percent Auto 6.7 % (0-4); Hematocrit 41.2 % (42.0-52.0); Hemoglobin 13.7 g/dl (14.0-18.0); Imm Gran Abs Auto 0.02 X10*3/uL (0.00-0.03); Imm Gran Pct Auto 0.3 % (0.0-0.4); Lymphocytes Absolute Auto 2.3 X10*3/uL (1.2-4.9); Lymphocytes Percent Auto 38.5 % (20-40); Mean Corpuscular HGB Conc 33.3 g/dl (31.0-36.0); Mean Corpuscular Hemoglobin 29.1 pg (27.0-33.0); Mean Corpuscular Volume 87.7 fL (80.0-98.0); Mean Platelet Volume 9.7 fL (9.4-12.4); Monocytes Absolute Auto 0.5 X10*3/uL (0.1-1.2); Monocytes Percent Auto 8.5 % (2-11); Neutrophils Absolute Auto 2.7 x10*3/uL (2.0-8.3); Neutrophils Percent Auto 45.5 % (45-73); Platelet Count 216 X10*3/uL (160-400); Red Cell Distribution Width 13.8 % (11.0-16.0)
[2024-09-23 13:08] LABS: Erythrocyte Sedimentation Rate 7 MM/HR (0-15)
== END 2024-09-23 11:15 | disposition home or self-care (01) ==
LOC: HO.LAB 11:14
PROVIDERS: PCP Internal Medicine; Visit Provider Internal Medicine
DX: R59.0 Localized enlarged lymph nodes (principal); J98.8 Other specified respiratory disorders
CPT/HCPCS: 36415; 85025; 85652; 96127; 99212

== ENCOUNTER 2024-09-28 08:31 | Outpatient (AMB) | payer MEDICARE, SELFPAY ==
--- NOTE | 2024-09-28 08:34 | A.OFFVIS_ITS ---
Vital Signs 09/28/24 08:36 Height 5 ft 10 in Weight 198 lb 6.656 oz BMI 28.5 BP 120/82 Blood Pressure Location Lt brachial Position Sitting Pulse 64 Intake Visit Reasons: 7 wk follow up with Pacer check Intake Note: 7 week follow-up with Medtronic check hearts doing ok Physical Education Teacher Required: No Allergies No Known Allergies Allergy (Verified 09/23/24 11:45) Medication List - Last Reconciled 09/28/24 by Blake Conley MD amoxicillin-pot clavulanate 875-125 mg 1 tab PO BID 7 days atorvastatin 10 mg PO BEDTIME omeprazole 20 mg PO DAILY tamsulosin (Flomax) 0.4 mg PO DAILY trazodone 150 mg PO BEDTIME HPI Comments Details: Stephane comes for follow-up after battery change. He has been doing well overall. No syncopal episodes. Currently dealing with left ear infection. Denies any prolonged palpitation irregular heartbeat. No lightheadedness, syncope. No exertional chest pain or shortness of breath. [facility] Medical History Osteoarthritis of right knee Borderline hypercholesterolemia Basal cell carcinoma Erectile dysfunction Cardiac pacemaker in situ Vasovagal syncope Bradycardia Surgical History History of ear surgery H/O colonoscopy (~05/18/19) History of surgery on arm History of pacemaker History of eye surgery Family History Father History of bladder cancer Substance use disorder Mother No problems noted. Social History Housing: House Alcohol intake: never Patient Tobacco Use Status: Former Tobacco user e-Cigarette/Vaping Use: Never Used Second Hand Smoke Exposure: Yes service: Yes Current occupational status: retired Cognitive needs: No Hearing needs: Yes (hearing aide) Vision needs: Yes (reading glasses) Review of Systems Const Denies chills, Denies fatigue, Denies fever(s), Denies frequent falls, Denies weakness, Denies weight gain and Denies weight loss ENT Denies dizziness Card Denies chest pain, Denies leg edema, Denies lightheadedness, Denies palpitations, Denies dyspnea, Denies dyspnea on exertion, Denies orthopnea and Denies other (loss of consciousness) Resp Denies cough, Denies dyspnea and Denies dyspnea on exertion GI Denies hematochezia and Denies change in stool character Musc Denies abnormal gait, Denies muscle weakness, Denies numbness, Denies radiating pain into limb and Denies tingling Neuro Denies abnormal gait, Denies dizziness, Denies frequent falls, Denies numbness, Denies tingling and Denies weakness Endo Denies fatigue and Denies palpitations Physical Exam Vital Signs: Last Vital Signs Pulse 64 09/28/24 08:36 BP 120/82 09/28/24 08:36 BMI result Body Mass Index 28.5 Const General: cooperative, comfortable, no acute distress, alert, awake and well groomed Nutritional Appearance: average body habitus Orientation/consciousness: patient oriented x3 Limitations: no limitations Neck Neck: Yes trachea midline, Yes supple and Yes no JVD Chest Chest palpation & inspection: normal inspection of the chest Resp Effort & Inspection: normal respiratory effort Auscultation: clear to auscultation bilaterally Cardio Jugular venous distension: no JVD Palpation: normal PMI Rate: regular rate Rhythm: regular rhythm Heart sounds: S1 normal heart sound present and S2 normal heart sound present GI Inspection: Yes normal to inspection Skin General skin exam: no rashes or lesions noted Neuro General: patient oriented x3 and no focal motor deficits Extrem General: Yes no clubbing, cyanosis or edema Psych Appearance: grossly normal Office Procedures Cardiac Device Check Cardiac Device Check Details: Dual-chamber Medtronic pacemaker in place. Programmed in MVP mode. Rate drop response was turned on. Atrial pacing thresholds excellent and reprogrammed to enhance battery life. Ventricular pacing thresholds are slightly elevated and reprogrammed to enhance battery life. Atrial ventricular sensing was excellent. Pacing lead impedance is stable. No arrhythmias were detected. 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 Rate drop response was turned on after recent battery change. Patient was doing well overall. Advised to maintain adequate hydration. No other changes were made. Pacemaker is working well overall. Will continue monitor remotely. Follow up in the clinic in 6 months time on patient's request Coding Level of Care Code Est Pt Level 3 (14376) Complex EM visit Add On G2211 Diagnoses Cardiac pacemaker in situ Z95.0 CPT Codes Cardiac Device Check - Cardiac Device 2: [id number] Cardiac Device Check, pacemaker dual lead ([id number])
[2024-09-28 08:36] VITALS: BP 120/82; PULSE 64; BMI 28.5
== END 2024-09-28 08:51 | disposition home or self-care (01) ==
LOC: HO.HCS 08:32
PROVIDERS: PCP Internal Medicine; Visit Provider Internal Medicine Cardiovascular Disease
DX: Z45.018 Encounter for adjustment and management of other part of cardiac pacemaker (principal)
CPT/HCPCS: 93280; 99212; G2211

== ENCOUNTER → 2024-09-28 08:31 | Outpatient (BNVA) | payer MEDICARE, SELFPAY | PROVIDERS: PCP Internal Medicine; Visit Provider Internal Medicine Cardiovascular Disease | DX: H60.502 Unspecified acute noninfective otitis externa, left ear (principal); Z45.018 Encounter for adjustment and management of other part of cardiac pacemaker | CPT/HCPCS: 93280; 99212 ==

== ENCOUNTER 2024-09-28 10:42 | Outpatient (AMB) | payer MEDICARE, SELFPAY ==
[2024-09-28 10:48] VITALS: BP 140/96; PULSE 100; TEMP 36.8; O2SAT 96; BMI 28.4
--- NOTE | 2024-09-28 10:48 | AM.OFFWIN_ITS ---
Intake Vital Signs 09/28/24 10:48 Height 5 ft 10 in Weight 198 lb 4 oz BMI 28.4 BP 140/96 H Blood Pressure Location Lt brachial Position Sitting Pulse 100 Pulse Source Pulse Oximeter Temp 98.3 F Temp Source Oral Pulse Oximetry (%) 96 Oxygen Delivery Method Room Air Intake Visit Reasons: EP LT ear ache Intake Note: Patient complains of left ear ache. Patient Tobacco Use Status: Former Tobacco user Pre Algebra Teacher Required: No Political Analyst: Not Required per policy Accompanied by: Self / Same As Patient Allergies No Known Allergies Allergy (Verified 09/28/24 10:48) Do you need a note to return to daycare/school/sports/work: No HPI HPI Comments History of Present Illness Details He presetns with L earache He said in July he had covid post pacemaker replacement Has some intermittent cold symptoms since Now main complaint if ear pain Ear discomfort started in L ear approx 2 weeks ago It was bilateral so he went to see PCP Fritz on 09/23 Per PCP he said the ear looked red Pt has been taking Augmentin since and still painful Few days remiaining of medicine R ear improved, L ear pain still a 09/08 Has been using tylenol without relief Pain with putting in hearing aid [facility] Medical History Osteoarthritis of right knee Borderline hypercholesterolemia Basal cell carcinoma Erectile dysfunction Cardiac pacemaker in situ Vasovagal syncope Bradycardia Surgical History History of ear surgery H/O colonoscopy (~05/18/19) History of surgery on arm History of pacemaker History of eye surgery Family History Father History of bladder cancer Substance use disorder Mother No problems noted. Social History Housing: House Alcohol intake: never Patient Tobacco Use Status: Former Tobacco user e-Cigarette/Vaping Use: Never Used Second Hand Smoke Exposure: Yes service: Yes Current occupational status: retired Cognitive needs: No Hearing needs: Yes (hearing aide) Vision needs: Yes (reading glasses) Review of Systems Const Denies chills and Denies fever(s) Eyes Denies change in vision ENT Denies dizziness, Reports ear discharge (light from L side), Reports otalgia, Denies nasal congestion and Denies sore throat Card Denies chest pain and Denies syncope Resp Denies cough Neuro Denies dizziness and Denies syncope Physical Exam Vital Signs: Last Vital Signs Temp 98.3 F 09/28/24 10:48 Pulse 100 09/28/24 10:48 BP 140/96 H 09/28/24 10:48 Pulse Ox 96 09/28/24 10:48 Oxygen Delivery Method Room Air 09/28/24 10:48 BMI result Body Mass Index 28.4 General: Non-toxic, NAD. Speaking full sentences. Skin: Warm dry throughout. No facial edema, periauricular edema or erythema or mastoid erythema/edema Eye: EOMI, PERRL HENT: Airway patent. Uvula midline. No pharyngeal erythema or edema. No PROFILE GRINDER TECHNICIAN. R canal clear. TM intact without erythema, bulging or perforation. L canal edematous with small amount of liquid yellow discharge (no pustule discharge). TM is partially visualized without perforation or overt erythema noted. No mastoid tenderness bilaterally. Respiratory: CTA bilaterally. No wheezes, rales or rhonchi Cardiac: RRR. MSK: Full ROM extremities. Neurology: Alert. No aphasia or facial droop. Gait without abnormality Psych: Good mood and affect Assessment & Plan Assessment & Plan (1) Otitis externa: Code(s): H60.90 - Unspecified otitis externa, unspecified ear Qualifiers: Otitis externa type: unspecified type Chronicity: acute Laterality: left Qualified Code(s): H60.502 - Unspecified acute noninfective otitis externa, left ear Plan: Patient seen and evaluated. No OM on exam but told to finish augmentin Avoid water in ears Avoid hearing aid until medicine completed Drops for L ear; ofloxacin for + L OE Tylenol prn pain Patient gave verbal understanding and had no additional questions or concerns at time of discharge All questions answered Medications: New ofloxacin 0.3% 5 drps otic (ears) BID 10 mL 0RF 7 days Coding Level of Care Code Est Pt Level 3 (04292) Diagnoses Acute otitis externa of left ear, unspecified type H60.502 Otitis externa type: unspecified type Chronicity: acute Laterality: left
== END 2024-09-28 11:24 | disposition home or self-care (01) ==
PROVIDERS: PCP Internal Medicine; Visit Provider Physician Assistant
DX: H60.502 Unspecified acute noninfective otitis externa, left ear (principal)

== ENCOUNTER → 2024-12-19 23:59 | Outpatient (BNV) | payer MEDICARE, SELFPAY ==
--- NOTE | 2024-12-23 08:44 | MHC.OFFVIS ---
Intake Visit Reasons: Remote device check- Medtronic Allergies No Known Allergies Allergy (Verified 09/28/24 10:48) PFS Medical History Osteoarthritis of right knee Borderline hypercholesterolemia Basal cell carcinoma Erectile dysfunction Cardiac pacemaker in situ Vasovagal syncope Bradycardia Surgical History History of ear surgery H/O colonoscopy (~05/18/19) History of surgery on arm History of pacemaker History of eye surgery Family History Father History of bladder cancer Substance use disorder Mother No problems noted. Social History Housing: House Alcohol intake: never Patient Tobacco Use Status: Former Tobacco user e-Cigarette/Vaping Use: Never Used Second Hand Smoke Exposure: Yes service: Yes Current occupational status: retired Cognitive needs: No Hearing needs: Yes (hearing aide) Vision needs: Yes (reading glasses) Office Procedures Cardiac Device Check Cardiac Device Check Details: Remote pacemaker report generated 12/19/2024. Pacemaker function is adequate [id number] Cardiac Device Interrogation, pacemaker Procedure code (CPT) selection complete Assessment & Plan Assessment & Plan (1) Cardiac pacemaker in situ: Comment: Dual-chamber Medtronic pacemaker, with rate drop response, January 2012 for malignant cardio inhibitory vasovagal syncope Code(s): Z95.0 - Presence of cardiac pacemaker Category: Medical Plan: See above Coding Level of Care Code Procedure Only Diagnoses Cardiac pacemaker in situ Z95.0 CPT Codes Cardiac Device Check - Cardiac Device 12: [id number] Cardiac Device Interrogation, pacemaker ([id number])
== END ==
PROVIDERS: PCP Internal Medicine; Visit Provider Internal Medicine Cardiovascular Disease
DX: Z45.018 Encounter for adjustment and management of other part of cardiac pacemaker (principal)
CPT/HCPCS: 93294

== ENCOUNTER 2025-01-27 11:31 | Outpatient (AMB) | payer MEDICARE, SELFPAY ==
[2025-01-27 12:23] VITALS: BP 132/80; PULSE 70; TEMP 36.6; O2SAT 97; BMI 27.8
--- NOTE | 2025-01-27 12:23 | AM.OFFWIN_ITS ---
Intake Vital Signs 01/27/25 12:23 Height 5 ft 10 in Weight 194 lb BMI 27.8 BP 132/80 Blood Pressure Location Lt brachial Position Sitting Pulse 70 Pulse Source Pulse Oximeter Temp 97.9 F Temp Source Oral Pulse Oximetry (%) 97 Intake Visit Reasons: ep cant hear in right ear Patient Tobacco Use Status: Former Tobacco user Allergies No Known Allergies Allergy (Verified 01/27/25 12:23) Do you need a note to return to daycare/school/sports/work: No HPI ep cant hear in right ear HPI Details This is a 69-year-old male patient who presents to the walk-in clinic today with about a one-week history of reduced hearing/blocked sensation on his right ear. Occasionally has a shooting pain in that ear. Denies any upper respiratory symptoms. [facility] Medical History Osteoarthritis of right knee Borderline hypercholesterolemia Basal cell carcinoma Erectile dysfunction Cardiac pacemaker in situ Vasovagal syncope Bradycardia Surgical History History of ear surgery H/O colonoscopy (~05/18/19) History of surgery on arm History of pacemaker History of eye surgery Family History Father History of bladder cancer Substance use disorder Mother No problems noted. Social History Housing: House Alcohol intake: never Patient Tobacco Use Status: Former Tobacco user e-Cigarette/Vaping Use: Never Used Second Hand Smoke Exposure: Yes service: Yes Current occupational status: retired Cognitive needs: No Hearing needs: Yes (hearing aide) Vision needs: Yes (reading glasses) Review of Systems Const All systems reviewed & are unremarkable except as noted in HPI and below Physical Exam Vital Signs: Last Vital Signs Temp 97.9 F 01/27/25 12:23 Pulse 70 01/27/25 12:23 BP 132/80 01/27/25 12:23 Pulse Ox 97 01/27/25 12:23 BMI result Body Mass Index 27.8 Const General: cooperative, healthy appearing, comfortable and no acute distress Nutritional Appearance: average body habitus Limitations: no limitations HEENT Head: Yes normal to inspection Ears: external ears normal, TM normal on the right and Abnormal EAC present otic discharge occluded by discharge on the right General nose exam: Normal external nose present Mouth: Normal oral and palatal mucosa present Resp Effort & Inspection: normal respiratory effort Skin General skin exam: no rashes or lesions noted Extrem General: Yes no clubbing, cyanosis or edema Psych Appearance: grossly normal Mental Status: mental status grossly normal Speech and movement: Normal speech and movement present Office Procedures Cerumen Removal From which ear canal was the cerumen removed: right Removal: irrigation Notes: patient tolerated procedure well, no complications and ear canal clear 71188-[id number] Irrigation/Lavage Assessment & Plan Assessment & Plan (1) Right otitis media with effusion: Code(s): H65.91 - Unspecified nonsuppurative otitis media, right ear Plan: Following irrigation of right ear, I was able to visualize TM, which was erythematous, with effusion. I am going to start him on Augmentin. We reviewed indications, use, possible side effects of medication. If he does not improve with treatment, he can return to the clinic for further evaluation. Patient verbalizes understanding and agrees to plan. Medications: New amoxicillin-pot clavulanate 875-125 mg 1 tab PO BID 14 tabs 0RF 7 days H65.91 - Unspecified nonsuppurative otitis media, right ear Coding Level of Care Code Est Pt Level 4 (61942) Diagnoses Right otitis media with effusion H65.91 CPT Codes Office Procedure - CPT: 74034-Ebe Irrigation/Lavage ([id number])
== END 2025-01-27 13:12 | disposition home or self-care (01) ==
PROVIDERS: PCP Internal Medicine; Visit Provider Nurse Practitioner Family
DX: H65.91 Unspecified nonsuppurative otitis media, right ear (principal)

== ENCOUNTER → 2025-01-27 11:31 | Outpatient (BNVA) | payer MEDICARE, SELFPAY | PROVIDERS: PCP Internal Medicine | DX: H65.91 Unspecified nonsuppurative otitis media, right ear (principal); H61.21 Impacted cerumen, right ear | CPT/HCPCS: 69209; 99212 ==

== ENCOUNTER 2025-02-02 07:56 | Outpatient (AMB) | payer MEDICARE, SELFPAY ==
--- OUTSIDE RECORDS SUMMARY | 2025-01-26 09:00 | XMS_ITS ---
Author Organization [facility] Address [address] [place] [address] Care Team Providers Care Technical Translator Name Role Phone Massimo Hernández Primary Care Provider [phone] Yasmine Pfeiffer Unavailable [phone] Selene Heredia [phone] Sullivan Encounters Encounter Location Date Provider Diagnosis [facility] [address] [place] [address] 01/26/2025 Selene Heredia Plan Of Treatment Next Appt Details Provider Name:Yasmine silver, 03/29/2025 09:30:00 AM, [address] [place], [address], Progress Notes * Stephane GOTTIDOB:1955 (69 yo M)Acc No.[id number]:01/26/2025 Progress Notes Patient: Pb Stephane NAVARRO Provider: Clarissa Heredia DPM :1955 A ge:69 Y S ex:Male Date:01/26/2025 Address:[address] [place], [place] [address] [id number] Pcp:Massimo Hernández Subjective: * Chief Complaints: * [...] DPM Date: 0 01/26/2025 Generated for Demar saleem/Yahir on: 02/02/2025 08:03 AM EDT
--- OUTSIDE RECORDS SUMMARY | 2025-01-31 10:00 | XMS_ITS ---
Author Organization [facility] Address [address] [place] [address] Care Team Providers Care Business Reporting Developer Name Role Phone Massimo Hernández Primary Care Provider Yasmine Pfeiffer Unavailable [phone] Rowena Huitron Unavailable [phone] REASON FOR VISIT Seen Sooner Encounters Encounter Location Date Provider Diagnosis [facility] [address] [place] [address] 01/31/2025 Rowena Huitron Plan Of Treatment Next Appt Details Provider Name:Yasmine silver, 03/29/2025 09:30:00 AM, [address] [place], [address], Progress Notes * Stephane GOTTIDOB:1955 (69 yo M)Acc No.[id number]:01/31/2025 Progress Notes Patient: Pb SCHMITTStephane RAE Provider: Palak Huitron DPM :1955 A ge:69 Y S ex:Male Date:01/31/2025 Address:[address] [place], [place] [address] [place] Pcp:Massimo Hernández Subjective: * Chief Complaints: * 1 . Seen Sooner. * Medical History: Objective: * Vitals: Assessment: Plan: * Treatment: * Images: * The named appointment provid er may or may not be the originator of this progress note, and it is not deemed complete until electronically signed by the appointment provider. Sign off status: Pending * Provider: Palak Huitron DPM Date: 01/31/2025 Generated for Demar saleem/Marlon/Danya on: 02/02/2025 08:04 AM EDT
--- OUTSIDE RECORDS SUMMARY | 2025-02-02 08:04 | XMS_ITS | Patient Health Record ---
Author Organization [facility] Address [address] [place] [address] Care Team Providers Care Shift Coordinator Name Role Phone BRIONNA EMERY Primary Care Provider Jose Montanez Unavailable [phone] Reason For Referral No Information Medications Medication SIG (Take, Route, Fr equency, Duration) Notes Start Date End Date Status Omeprazole 20 MG 1 capsule Orally Onc e a day for 30 day(s) Active traZODone HCl 100 MG 1 tablet at bedtime Orally Once a day for 30 day(s) Active Tamsulosin HCl 0.4 MG 1 capsule Orally O nce a day for 30 day(s) Active clonazePAM 0.5 MG 1 tablet at bedtime Orally Once a day Active Aspirin 81 81 MG 1 tablet Orally Once a day for 30 day(s) Active Immunizations Vaccine Route Administration Date Status Comme nts Influenza Unknown 02/14/2019 Administered Social History Tobacco Use: Social History Observation Description Date Details (start date - stop date) Former Smoker NA - NA Tobacco Use/Smoking Question Answer Notes Patient is a former smoker How long has it been since you last smoked? > 10 years Alcohol Screen Question Answer Notes Did you have a drink contain ing alcohol in the past year? Yes How often did you have a dri nk containing alcohol in the past year? Monthly or less (1 point) How many drinks did you have on a typical day when you were drinking in the past year? 1 or 2 drinks (0 point) How often did you have 6 or more drinks on one occasion in the past year? Never (0 point) Points 1 Interpretation Negative Section Notes: Nonsmoker; No sig alcohol Problems Problem Type SNOMED Code ICD Code Onset Dates Problem Status W/U Status Risk Notes Problem 487349065 Encounter for screening for malignant neoplasm of colon (Z12.11) Active confirmed Problem 216594509 Gastroesophageal reflux disease, esophagitis presence not specified (K21.9) Active confirmed Problem 314998441 Hx of adenomatou s polyp of colon (Z86.010) Active confirmed Plan Of Treatment Pending Test Test Name Order Date GI BIOPSY 05/18/2019 Future Test Test Name Order Date UPPER GI ENDOSCOPY 02/16/2019 COLONOSCOPY 02/16/2019 Insurance Providers Payer Name Payer Address Payer Phone Subscriber Number Group Number Insured Name Patient Relationship to Insured Coverage Start Date [place]age End Date [facility] [place] [employer] [address] [place] [address] [id number] DAYLIN GOTTI Self - patient is the insured Medical (General) History Medical History History ICD Code Denies SC,DM,CVA,Lung disease,renal dise ase GERD BPH Anxiety Colonoscopy [address] Burciaga-1 tubula r adenoma removed Surgical History Surgery Date(Month/Year) Pacemaker 2011 ruptured left bicep [address] Malik 2007
--- OUTSIDE RECORDS SUMMARY | 2025-02-02 08:05 | XMS_ITS | Patient Health Record ---
[facility] Address [address] [place] [address] Care Team Providers Care Shoe Folder Name Role Phone Betty, Kartik Primary Care Provider Yasmine Pfeiffer Unavailable [phone] Black, Selene Unavailable [phone] Rowena Huitron Unavailable [phone] Allergies No Known Allergies Reason For Referral No Information Medications Medication SIG (Take, Route, Frequency, Duration) Notes Start Date End Date Status Omeprazole 20 MG 1 capsule 1/2 to 1 h our before morning meal Orally Once a day Active Atorvastatin Calcium 10 MG 1 tablet Oral ly Once a day Active Tamsulosin HCl 0.4 MG 1 capsule Orally O nce a day Active traZODone HCl 100 MG 1 tablet at bedtime Orally Once a day Active Social History AUDIT-C (Standard) Question Answer Notes Did you have a drink containing alcohol in the p ast year? No Points 0 Interpretation Negative Problems Problem Type SNOMED Code ICD Code Onset Dates Problem Status W/U Status Risk Notes Problem Plantar fascial fibromatosis (58769585) Plantar fasciitis, bilateral (M72.2) Active confirmed Vital Signs Blood pressure diastolic 80 mm Hg 01/18/2025 Height 3mx81fd in 01/18/2025 Blood pressure systolic 122 mm Hg 01/18/2025 Weight 195 lbs 01/18/2025 BMI 27.98 kg/m2 01/18/2025 Encounters Encounter Location Date Provider Diagnosis [facility] [address] [place] [address] 01/18/2025 Yasmine Pfeiffer Pain in right foot M79.671 ; Plantar fasciitis, bilateral M72.2 ; Calcaneal spur, right foot M77.31 ; Other myositis of right foot M60.871 ; Bursitis of right foot M77.51 ; Pain in left foot M79.672 ; Calcaneal spur, left foot M77.32 ; Other myositis of left foot M60.872 and Bursitis of left foot M77.52 [facility] [address] [place] [address] 11/14/2024 Selene Heredia Assessments Encounter Date Diagnosis (ICD Code) Assessment Notes Treatment Notes Treatment Clinical Notes Section Notes 01/18/2025 Pain in right foot (ICD-10 - M79.671) 01/18/2025 Plantar fasciitis, bilateral (ICD-10 - M72.2) Patient Educated with: HEEL CORD STRETCHES.pdf (HEEL CORD STRETCHES.pdf) Patient Educated with: RICE THERAPY.pdf (RICE THERAPY.pdf) 01/18/2025 Calcaneal spur, right foot (ICD-10 - M77.31) 01/18/2025 Other myositis of right foot (ICD-10 - M60.871) 01/18/2025 Bursitis of right foot (ICD-10 - M77.51) 01/18/2025 Pain in left foot (ICD-10 - M79.672) 01/18/2025 Calcaneal spur, left foot (ICD-10 - M77.32) 01/18/2025 Other myositis of left foot (ICD-10 - M60.872) 01/18/2025 Bursitis of left foot (ICD-10 - M77.52) Plan Of Treatment Pending Test Test Name Order Date X ray : Foot, left 3V 01/18/2025 X ray : Foot, right 3V 01/18/2025 Next Appt Details Provider Name:Yasmine silver, 03/29/2025 09:30:00 AM, [address] [place], [address], Insurance Providers Payer Name Payer Address Payer Phone Subscriber Number Group Number Insured Name Patient Relationship to Insured Coverage Start Date Coverage End Date Medicare National Govt Sv[employer] [address] [place] [address] [id number] Stephane Saravia Self - patient is the insured 2 [employer] Blue [employer] [address] [place] [address] [id number] Stephane Saravia Self - patient is the insured Medical (General) History Medical History History ICD Code Arthritis Knee Pain covid-19 Reflux ( GERD) Measles Mumps Chicken pox Pacemaker Surgical History Surgery Date(Month/Year) cardiac pacemaker 07/2024
--- NOTE | 2025-02-02 08:14 | A.OFFPC_ITS ---
Vital Signs 02/02/25 08:15 Height 5 ft 10 in Weight 194 lb BMI 27.8 BP 112/60 Blood Pressure Location Lt brachial Position Sitting Pulse 96 Pulse Source Pulse Oximeter Temp 97.1 F Temp Source Temporal Artery Scan Pulse Oximetry (%) 95 Oxygen Delivery Method Room Air Intake Visit Reasons: 6 month follow up Intake Note: Patient is here to follow up on Hypercholesterolemia, ED. Ibm Mainframe Developer Required: No Bad Cloth Checker: Not Required per policy Accompanied by: Self / Same As Patient Allergies No Known Allergies Allergy (Verified 02/02/25 08:15) Tobacco use date assessed: 02/02/25 Fall risk assessment: No Falls in past year Last assessed Fall Risk: 02/02/25 Dental Screening Dental Screen Date: 09/23/24 [facility] Medical History Osteoarthritis of right knee Borderline hypercholesterolemia Basal cell carcinoma Erectile dysfunction Cardiac pacemaker in situ Vasovagal syncope Bradycardia Surgical History History of ear surgery H/O colonoscopy (~05/18/19) History of surgery on arm History of pacemaker History of eye surgery Family History Father History of bladder cancer Substance use disorder Mother No problems noted. Social History Housing: House Alcohol intake: never Patient Tobacco Use Status: Former Tobacco user e-Cigarette/Vaping Use: Never Used Second Hand Smoke Exposure: Yes service: Yes Current occupational status: retired Cognitive needs: No Hearing needs: Yes (hearing aide) Vision needs: Yes (reading glasses) Questionnaire Thrive Questionnaire Date Thrive assessed: 09/23/24 I am a: Patient What is your living situation today?: I have a steady place to live Within the past 12 months, did the food you bought not last and you didn't have the money to get more?: Never true Within the past 12 months, did you worry whether your food would run out before you got money to buy more?: Never true Do you have trouble paying for medicines?: No Do you have trouble getting transportation to medical appointments?: No Do you have trouble paying your heating and electricity bill?: No Do you have trouble taking care of your child, family member or friend?: No Do you have trouble with day-to-day activities such as bathing, preparing meals, shopping, managing finances, etc.?: No Are you currently unemployed and looking for a job?: No Are you interested in more education?: No Please select the resources that you would like help with: None Currently or been in a relationship where the following occur: No concerns reported THRIVE Score: 0 CHRIS-7 AMB Questionnaire CHRIS-7 Date CHRIS - 7 assessed: 09/23/24 Source: Developed by Drs. Jose Mccann, Lesa Morel, Hans Olivas and colleagues, with an educational bridget from [employer]. Physical exam (Primary Care) Vital Signs: Last Vital Signs Temp 97.1 F 02/02/25 08:15 Pulse 96 02/02/25 08:15 BP 112/60 02/02/25 08:15 Pulse Ox 95 02/02/25 08:15 Oxygen Delivery Method Room Air 02/02/25 08:15 BMI result Body Mass Index 27.8 Tobacco/Smoking Status: Tobacco use Status Tobacco use date assessed 02/02/25 02/02/25 08:20 Patient Tobacco Use Status Former Tobacco user 02/02/25 08:20 e-Cigarette/Vaping Use Never Used 02/02/25 08:20 Thrive Assessment: Date of Thrive Assessment Date Thrive assessed 09/23/24 02/02/25 08:20 Currently or been in a relationship where the following occur: No concerns reported Coding Level of Care Code Est Pt Level 4 (72607) Complex EM visit Add On G2211 Diagnoses Borderline hypercholesterolemia E78.00 Assessment & Plan Assessment & Plan (1) Borderline hypercholesterolemia: Code(s): E78.00 - Pure hypercholesterolemia, unspecified Category: Medical Plan: History of Present Illness - The patient is a 69-year-old male presenting with concerns regarding ear health and routine health maintenance. - Otitis externa: The patient had a history of otitis externa for which ear drops were prescribed. Although the drops provided some relief, the condition did not completely resolve, leading to a sudden hearing loss in one ear approximately two weeks ago. - Impacted cerumen: The patient experienced a significant hearing loss due to impacted cerumen, which was resolved after removal at a walk-in clinic. Amoxicillin was prescribed due to concerns about the eardrum condition. - Hyperlipidemia: The patient's cholesterol levels were previously checked and found to be satisfactory, but a repeat fasting blood test is required. - Plantar fasciitis: The patient reported heel pain, which was treated with cortisone injections, resulting in significant improvement. - Preventative care: The patient received an influenza vaccination and a shingles vaccination. The patient experienced illness following the shingles vaccination, which was administered concurrently with the influenza vaccine. 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 Review of Systems - Ears: Reports history of otitis externa and impacted cerumen, leading to hearing loss. - Musculoskeletal: Reports heel pain due to plantar fasciitis, improved with cortisone injections. - General: Denies any current health concerns other than those discussed. - Vision: Reports good vision, no halos, and drives at night without issues. - Genitourinary: Denies urinary issues or incontinence. - Gastrointestinal: Denies stomach issues but notes an increase in abdominal girth. Physical Exam General: Cooperative and healthy appearing Nutritional Appearance: Well nourished Orientation/consciousness: Patient oriented x3 Limitations: No limitations Head: Normal to inspection General: Appearance normal, both eyes and all related structures Neck: Normal visual inspection Chest: Normal palpation of entire chest wall Respiratory: N ormal respiratory effort Neurology: Patient oriented x3, Vision's pretty good, Driving at night without issues Results Plan 1. Otitis Externa - Continue monitoring ear health and ensure completion of prescribed amoxicillin course. 2. Impacted Cerumen - Ensure regular ear cleaning to prevent recurrence. 3. Hyperlipidemia - Schedule fasting blood work to reassess cholesterol levels. 4. Plantar Fasciitis - Continue with cortisone injections as needed for symptom relief. 5. Preventative Care: Influenza Vaccination - Annual influenza vaccination recommended. 6. Preventative Care: Shingles Vaccination - Complete the shingles vaccination series as scheduled. Discussion Notes During the visit, we discussed the patient's ear health, including the history of otitis externa and impacted cerumen. I advised completing the prescribed amoxicillin course and ensuring regular ear cleaning. We also reviewed the need for fasting blood work to monitor hyperlipidemia and discussed the benefits of continuing cortisone injections for plantar fasciitis. The importance of completing the shingles vaccination series and receiving annual influenza vaccinations was emphasized. Patient Instructions - Complete the course of amoxicillin as prescribed. - Schedule and complete fasting blood work for cholesterol assessment. - Maintain regular ear cleaning to prevent wax buildup. - Continue with cortisone injections if heel pain persists. - Complete the shingles vaccination series as scheduled. - Receive annual influenza vaccination. Orders: Orders Complete Blood Count no Diff Today E78.00 - Pure hypercholesterolemia, unspecified Liver Panel Today E78.00 - Pure hypercholesterolemia, unspecified Basic Metabolic Panel Today E78.00 - Pure hypercholesterolemia, unspecified Thyroid Stimulating Hormone Today E78.00 - Pure hypercholesterolemia, unspecified Lipid Panel Today E78.00 - Pure hypercholesterolemia, unspecified Prostate Specific Antigen Scr Today E78.00 - Pure hypercholesterolemia, unspecified UA and rflx microscopic Today E78.00 - Pure hypercholesterolemia, unspecified
[2025-02-02 08:15] VITALS: BP 112/60; PULSE 96; TEMP 36.2; O2SAT 95; BMI 27.8
== END 2025-02-02 08:39 | disposition home or self-care (01) ==
LOC: HO.HMCH 07:57
PROVIDERS: PCP Internal Medicine; Visit Provider Internal Medicine
DX: E78.00 Pure hypercholesterolemia, unspecified (principal)

== ENCOUNTER → 2025-02-02 07:56 | Outpatient (BNVA) | payer MEDICARE, SELFPAY | PROVIDERS: PCP Internal Medicine; Visit Provider Internal Medicine | DX: E78.00 Pure hypercholesterolemia, unspecified (principal) | CPT/HCPCS: 99212 ==

== ENCOUNTER → 2025-03-20 23:59 | Outpatient (BNV) | payer MEDICARE, SELFPAY ==
--- NOTE | 2025-03-22 16:13 | A.OFFVIS_ITS ---
Intake Visit Reasons: Remote device check- Medtronic Allergies No Known Allergies Allergy (Verified 02/02/25 08:15) [facility] Medical History Osteoarthritis of right knee Borderline hypercholesterolemia Basal cell carcinoma Erectile dysfunction Cardiac pacemaker in situ Vasovagal syncope Bradycardia Surgical History History of ear surgery H/O colonoscopy (~05/18/19) History of surgery on arm History of pacemaker History of eye surgery Family History Father History of bladder cancer Substance use disorder Mother No problems noted. Social History Housing: House Alcohol intake: never Patient Tobacco Use Status: Former Tobacco user e-Cigarette/Vaping Use: Never Used Second Hand Smoke Exposure: Yes service: Yes Current occupational status: retired Cognitive needs: No Hearing needs: Yes (hearing aide) Vision needs: Yes (reading glasses) Office Procedures Cardiac Device Check Cardiac Device Check Details: Remote pacemaker report generated 03/20/2025. Pacemaker function is adequate. 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
== END ==
PROVIDERS: PCP Internal Medicine; Visit Provider Internal Medicine Cardiovascular Disease
DX: Z45.018 Encounter for adjustment and management of other part of cardiac pacemaker (principal)
CPT/HCPCS: 93294

== ENCOUNTER 2025-03-30 08:31 | Outpatient (AMB) | payer MEDICARE, SELFPAY ==
--- NOTE | 2025-03-30 08:41 | MHC.OFFVIS ---
Vital Signs 03/30/25 08:42 Height 5 ft 10 in Weight 201 lb 0.985 oz BMI 28.8 BP 122/74 Blood Pressure Location Lt brachial Position Sitting Pulse 53 Pulse Source Pulse Oximeter Intake Visit Reasons: 6 mth w/ pacer ck Intake Note: 6m f/u pace ck Linux Network Administrator Required: No Accompanied by: Self / Same As Patient Allergies No Known Allergies Allergy (Verified 03/30/25 08:45) Medication List - Last Reconciled 03/30/25 by Blake Conley MD amoxicillin-pot clavulanate 875-125 mg 1 tab PO BID 7 days atorvastatin 10 mg PO BEDTIME omeprazole 20 mg PO DAILY tamsulosin (Flomax) 0.4 mg PO DAILY trazodone 150 mg PO BEDTIME HPI Comments Details: Stephane comes for follow-up. He has been doing very well. Denies any symptoms of palpitations. He is very active and as per the pacer he is active about 6 hours a day. Denies any exertional chest pain or shortness of breath with exertional activity. Denies any lightheadedness, syncope. No heart failure symptoms. Taking his medications. He has not had any recent lipid panel. [facility] Medical History Osteoarthritis of right knee Borderline hypercholesterolemia Basal cell carcinoma Erectile dysfunction Cardiac pacemaker in situ Vasovagal syncope Bradycardia Surgical History History of ear surgery H/O colonoscopy (~05/18/19) History of surgery on arm History of pacemaker History of eye surgery Family History Father History of bladder cancer Substance use disorder Mother No problems noted. Social History Housing: House Alcohol intake: never Patient Tobacco Use Status: Former Tobacco user e-Cigarette/Vaping Use: Never Used Second Hand Smoke Exposure: Yes service: Yes Current occupational status: retired Cognitive needs: No Hearing needs: Yes (hearing aide) Vision needs: Yes (reading glasses) Review of Systems Const Denies daytime sleepiness, Denies difficulty sleeping, Denies snoring, Denies stops breathing during sleep and Denies weakness Card Denies chest pain, Denies rapid heart rate, Denies irregular heart rhythm, Denies claudication, Denies leg edema, Denies lightheadedness, Denies palpitations, Denies dyspnea, Denies dyspnea on exertion, Denies orthopnea, Denies paroxysmal nocturnal dyspnea and Denies slow heart rate Resp Denies cough, Denies dyspnea, Denies dyspnea on exertion and Denies snoring GI Reports no additional complaints, Denies hematochezia, Denies change in stool character and Denies dyspepsia Musc Denies abnormal gait, Denies muscle weakness and Denies numbness Neuro Denies abnormal gait, Denies numbness and Denies weakness Endo Denies palpitations Physical Exam Vital Signs: Last Vital Signs Pulse 53 03/30/25 08:42 BP 122/74 03/30/25 08:42 BMI result Body Mass Index 28.8 Const General: cooperative, comfortable, no acute distress, alert, awake and well groomed Nutritional Appearance: average body habitus Orientation/consciousness: patient oriented x3 Limitations: no limitations Neck Neck: Yes trachea midline, Yes supple and Yes no JVD Chest Chest palpation & inspection: normal inspection of the chest Resp Effort & Inspection: normal respiratory effort Auscultation: clear to auscultation bilaterally Cardio Jugular venous distension: no JVD Palpation: normal PMI Rate: regular rate Rhythm: regular rhythm Heart sounds: S1 normal heart sound present and S2 normal heart sound present GI Inspection: Yes normal to inspection Skin General skin exam: no rashes or lesions noted Neuro General: patient oriented x3 and no focal motor deficits Extrem General: Yes no clubbing, cyanosis or edema Psych Appearance: grossly normal Office Procedures Cardiac Device Check Cardiac Device Check Details: Dual-chamber Medtronic pacemaker in place programmed in MVP mode with rate drop response. He has more than 8000 rate drop responses. Atrial ventricular pacing 24% of the time. Few episodes of fast AV rate consistent with SVT noted. Atrial ventricular pacing thresholds excellent and reprogrammed to enhance battery life. Pacing lead impedance is stable. 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 He has not had any syncopal or near syncopal events. Doing well. Advised to maintain adequate hydration. Will continue monitor pacer by remote telemetry every 3 months. Follow up in the clinic in 1 year's time. (2) Hyperlipidemia: Code(s): E78.5 - Hyperlipidemia, unspecified Category: Medical Plan: Hyperlipidemia being followed through office. He is currently no symptoms suggestive of angina. Continue lipid modification with goal LDL less than 100 mg/dL. Being followed through your office. Advise lifestyle modification with a avoidance of smoking as well as regular physical activity and weight loss program. Will follow up in the clinic in 1 year's time, sooner PRN. Thank you for allowing me to partake in his care Coding Level of Care Code Est Pt Level 4 (35074) Complex EM visit Add On G2211 Diagnoses Cardiac pacemaker in situ Z95.0 Hyperlipidemia E78.5 CPT Codes Cardiac Device Check - Cardiac Device 2: 66992-CQ Cardiac Device Check, pacemaker dual lead ([id number])
[2025-03-30 08:42] VITALS: BP 122/74; PULSE 53; BMI 28.8
== END 2025-03-30 08:57 | disposition home or self-care (01) ==
LOC: HO.HCS 08:32
PROVIDERS: PCP Internal Medicine; Visit Provider Internal Medicine Cardiovascular Disease
DX: E78.5 Hyperlipidemia, unspecified (principal); Z95.0 Presence of cardiac pacemaker
CPT/HCPCS: 93280; 99214; G2211

== ENCOUNTER → 2025-03-30 08:31 | Outpatient (BNVA) | payer MEDICARE, SELFPAY | PROVIDERS: PCP Internal Medicine; Visit Provider Internal Medicine Cardiovascular Disease | DX: Z45.018 Encounter for adjustment and management of other part of cardiac pacemaker (principal); E78.5 Hyperlipidemia, unspecified | CPT/HCPCS: 93280; 99212 ==

== ENCOUNTER 2025-05-22 06:24 | Outpatient (REF) | payer MEDICARE, SELFPAY ==
--- OUTSIDE RECORDS SUMMARY | 2025-01-26 08:00 | XMS_ITS ---
Author Organization [facility] Address [address] [place] [address] Care Team Providers Care Nurse Liaison Name Role Phone Massimo Hernández Primary Care Provider [phone] Yasmine Pfeiffer Unavailable [phone] Selene Heredia [phone] Sullivan Encounters Encounter Location Date Provider Diagnosis [facility] [address] [place] [address] 01/26/2025 Selene Heredia Plan Of Treatment No Information Progress Notes * MERRILLHISALLY StephaneDOB:1955 (69 yo M)Acc No.[id number]:01/26/2025 Progress Notes Patient: Stephane FAUSTIN Provider: Clarissa Heredia DPM :1955 A ge:69 Y S ex:Male Date:01/26/2025 Address:[address] [place] [address] NOLAN [id number] Pcp:Massimo Hernández Subjective: * Chief Complaints: * [address] Sullivan[address] * Medical History: Objective: * Vitals: Assessment: Plan: * Treatment: * Images: * The named appointment provid er may or may not be the originator of this progress note, and it is not deemed complete until electronically signed by the appointment provider. Sign off status: Pending * Provider: Clarissa Heredia DPM Date: 0 01/26/2025 Generated for Demar saleem/Marlon/Danya on: 1 07/23/2024 06:26 AM EST
--- OUTSIDE RECORDS SUMMARY | 2025-01-31 09:00 | XMS_ITS ---
Author Organization [facility] Address [address] [place] [address] Care Team Providers Care Clerical Adjuster Name Role Phone Massimo Hernández Primary Care Provider Yasmine Pfeiffer Unavailable [phone] Rowena Huitron [phone] REASON FOR VISIT Seen Sooner Encounters Encounter Location Date Provider Diagnosis [facility] [address] [place] [address] 01/31/2025 Rowena Huitron Plan Of Treatment No Information Progress Notes * MERRILLStephane RAEDOB:1955 (69 yo M)Acc No.[id number]:01/31/2025 Progress Notes Patient: Stephane FAUSTIN Provider: Palak Huitron DPM :1955 A ge:69 Y S ex:Male Date:01/31/2025 Address:[address] [place] [address] Bre [facility] Pcp:Massimo Hernández Subjective: * Chief Complaints: * 1 . Seen Sooner. * Medical History: Objective: * Vitals: Assessment: Plan: * Treatment: * Images: * The named appointment provid er may or may not be the originator of this progress note, and it is not deemed complete until electronically signed by the appointment provider. Sign off status: Pending * Provider: Palak Huitron DPM Date: 0 01/31/2025 Generated for Demar saleem/Marlon/Danya on: 1 07/23/2024 06:26 AM EST
--- OUTSIDE RECORDS SUMMARY | 2025-05-22 06:26 | XMS_ITS | Patient Health Record ---
Author Organization [facility] Address [address] [place] [address] Care Team Providers Care Sheetrock Applicator Name Role Phone Betty, Kartik Primary Care Provider [phone] Yasmine Pfeiffer Unavailable [phone] Black, Selene Unavailable [phone] Rowena Huitron Unavailable [phone] Allergies No Known Allergies Reason For Referral No Information Medications Medication SIG (Take, Route, Frequency, Duration) Notes Start Date End Date Status Atorvastatin Calcium 10 MG 1 tablet Oral ly Once a day Active Omeprazole 20 MG 1 capsule 1/2 to 1 h our before morning meal Orally Once a day Active traZODone HCl 100 MG 1 tablet at bedtime Orally Once a day Active Tamsulosin HCl 0.4 MG 1 capsule Orally O nce a day Active Immunizations Vaccine Route Administration Date Status Comme nts Influenza Unknown 03/01/2025 Administered Social History Tobacco Use: Social History Observation Description Date Details (start date - stop date) Never Smoker NA - NA Tobacco use other than smoking: Question Answer Notes Are you an other tobacco user? No Tobacco Control (Standard) Question Answer Notes Tobacco use: Nonsmoker AUDIT-C (Standard) Question Answer Notes Did you have a drink containing alcohol in the p ast year? 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) Plantar fasciitis, bilateral (M72.2) Active confirmed Vital Signs Blood pressure diastolic 80 mm Hg 03/29/2025 Height 3hc57yo in 03/29/2025 Blood pressure systolic 121 mm Hg 03/29/2025 Weight 195 lbs 03/29/2025 BMI 27.98 kg/m2 03/29/2025 Procedures Procedure Date Ordered Date Performed Result Body Sit e 44617,[id number] TENDON SHEATH/LIGAMENT 03/29/2025 N/A Encounters Encounter [facility] [address] [facility]/18[facility]25 Yasmine Pfeiffer Pain in right foot M79.671 ; Plantar fasciitis, bilateral M72.2 ; Calcaneal spur, right foot M77.31 ; Other myositis of right foot M60.871 ; Bursitis of right foot M77.51 ; Pain in left foot M79.672 ; Calcaneal spur, left foot M77.32 ; Other myositis of left foot M60.872 and Bursitis of left foot M77.[address] [address] 03/29/2025 Yasmine Pfeiffer Plantar fasciitis M72.[address] [address] 11/14/2024 Selene Heredia Assessments Encounter Date Diagnosis (ICD Code) Assessment Notes Treatment Notes Treatment Clinical Notes Section Notes 01/18/2025 Pain in right foot (ICD-10 - M79.671) 03/29/2025 Plantar fasciitis (ICD-10 - M72.2) Resistant to previous conservative treatment Patient Educated with: RICE THERAPY.pdf (RICE THERAPY.pdf) Patient Educated with: INJECTIONTHERA PY.pdf (INJECTIONTHER APY.pdf) 01/18/2025 Plantar fasciitis, bilateral (ICD-10 - M72.2) [...] X ray : Foot, right 3V 01/18/2025 [id number] TENDON SHEATH/LIGAMENT 1 Insurance Providers Payer Name Payer Address Payer Phone Subscriber Number Group Number Insured Name Patient Relationship to Insured Coverage Start Date Coverage End Date Medicare National Govt Svcs [employer] [address] [place] [address] [id number] Stephane Saravia Self - patient is the insured 2 [employer] [address] [place] [address] [phone] [id number] Stephane Saravia Self - patient is the insured Medical (General) History Medical History History ICD Code Arthritis Knee Pain covid-19 Reflux ( GERD) Measles Mumps Chicken pox Pacemaker Surgical History Surgery Date(Month/Year) cardiac pacemaker 07/2024
--- OUTSIDE RECORDS SUMMARY | 2025-05-22 06:26 | XMS_ITS | Patient Health Record ---
Author Organization [facility] Address [address] [place] [address] Care Team Providers Care Hearing Officer Name Role Phone BRIONNA EMERY Primary Care Provider Jose Montanez Unavailable [phone] Reason For Referral No Information Medications Medication SIG (Take, Route, Frequency, Duration) Notes Start Date End Date Status Omeprazole 20 MG Capsule Delayed Release 1 capsule Orally Once a day; Duration: 30 day(s) Active traZODone HCl 100 MG Tablet 1 tablet at bedtime Orally Once a day; Duration: 30 day(s) Active Tamsulosin HCl 0.4 MG Capsule 1 capsule Orally Once a day; Duration: 30 day(s) Active clonazePAM 0.5 MG Tablet 1 tablet at bed time Orally Once a day Active Aspirin 81 81 MG Tablet Delayed Release 1 tablet Orally Once a day; Duration: 30 day(s) Active Immunizations Vaccine Route Administration Date Status Comme nts Influenza Unknown 02/14/2019 Administered Social History Tobacco Use: Social History Observation Description Date Details (start date - stop date) Former Smoker NA - NA Social History Drugs/Alcohol: Social Info Question Answer Notes Alcohol Screen Did you have a drink containing alcohol in the past year? Yes How often did you have a drink containing alcohol in the past year? Monthly or less (1 point) How many drinks did you have on a typical day when you were drinking in the past year? 1 or 2 drinks (0 point) How often did you have 6 or more drinks on one occasion in the past year? Never (0 point) Points 1 Interpretation Negative Tobacco Use: Social Info Question Answer Notes Tobacco Use/Smoking Patient is a former smoker How long has it been since you last smoked? 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 Section Notes: Nonsmoker; No sig alcohol Problems Problem Type SNOMED Code ICD Code Onset Dates Problem Status W/U Status Risk Notes Problem Screening for malignant neoplasm of colon (872274581) Encounter for screening for malignant neoplasm of colon (Z12.11) Active confirmed Problem Gastroesophageal reflux disease (144368357) Gastroesophageal reflux disease, esophagitis presence not specified (K21.9) Active confirmed Problem History of adenomatous polyp of colon (601268281) Hx of adenomatous polyp of colon (Z86.010) Active confirmed Plan Of Treatment Pending Test Test Name Order Date GI BIOPSY 05/18/2019 Future Test Test Name Order Date UPPER GI ENDOSCOPY 02/16/2019 COLONOSCOPY 02/16/2019 Insurance Providers Payer Name Payer Address Payer Phone Subscriber Number Group Number Insured Name Patient Relationship to Insured Coverage Start Date Coverage End Date [facility] [address] [place] [address] [id number] [id number] Self - patient is the insured Medical (General) History Medical History History ICD Code Denies SC,DM,CVA,Lung disease,renal dise ase GERD BPH Anxiety Colonoscopy [address] Burciaga-1 tubula r adenoma removed Surgical History Surgery Date(Month/Year) Pacemaker 2010 ruptured left bicep [address] Malik 2007
[2025-05-22 08:03] LABS: Hematocrit 46.2 % (42.0-52.0); Hemoglobin 15.3 g/dl (14.0-18.0); Mean Corpuscular HGB Conc 33.1 g/dl (31.0-36.0); Mean Corpuscular Hemoglobin 29.1 pg (27.0-33.0); Mean Corpuscular Volume 87.8 fL (80.0-98.0); NRBC Abs Auto 0.000 X10*3/uL (0.0-0.012); NRBC Pct Auto 0.0 /100WBC (0.0-0.2); Platelet Count 242 X10*3/uL (160-400); Red Blood Count 5.26 X10*6/uL (4.60-5.80); White Blood Count 7.7 X10*3/uL (4.8-10.8)
[2025-05-22 08:21] LABS: Appearance Urine Clear; Glucose Urine UA Negative (Negative); PH 6.5 (5.0-9.0); Specific Gravity - Urine 1.015 (1.005-1.025)
[2025-05-22 08:50] LABS: Alanine Aminotransferase 55 U/L (0-40); Albumin Level 4.4 g/dL (3.5-5.0); Alkaline Phosphatase 57 U/L (39-117); Anion Gap 13 (12-20); Aspartate Amino Transferase 25 U/L (5-37); Blood Urea Nitrogen 15 mg/dL (9-16); Calcium 9.5 mg/dL (8.4-10.2); Carbon Dioxide 27 mmol/L (22-29); Chloride 105 mmol/L (96-108); Cholesterol 147 mg/dL (<200); Estimated Glomerular Filt Rate > 60; HDL Cholesterol 37 mg/dL (>40); Potassium 4.0 mmol/L (3.3-5.1); Sodium 141 mmol/L (135-145); Total Protein 7.1 g/dL (6.5-8.0); Triglycerides 177 mg/dL (<150)
[2025-05-22 08:56] LABS: Thyroid Stimulating Hormone 1.32 uIU/mL (0.32-4.0)
== END 2025-05-22 06:25 | disposition home or self-care (01) ==
LOC: HO.LAB 06:24
PROVIDERS: PCP Internal Medicine; Visit Provider Internal Medicine
DX: Z12.5 Encounter for screening for malignant neoplasm of prostate (principal); E78.00 Pure hypercholesterolemia, unspecified
CPT/HCPCS: 36415; 80048; 80061; 80076; 81003; 84153; 84443; 85027